=== PATIENT | male | born 1945 | race Asian ===

== ENCOUNTER 2020-05-03 11:15 | Outpatient (REF) | payer OTHER, SELFPAY ==
[2020-05-03 15:22] LABS: Alanine Aminotransferase 18 U/L (0-40); Anion Gap 12 (12-20); Aspartate Amino Transferase 20 U/L (5-37); Blood Urea Nitrogen 20 mg/dL (9-16); Carbon Dioxide 28 mmol/L (22-29); Chloride 104 mmol/L (96-108); Cholesterol 157 mg/dL; Estimated Glomerular Filt Rate > 60; Glucose Fasting 102 mg/dL (60-99); HDL Cholesterol 58 mg/dL; LDL Cholesterol Calculated 81 mg/dl; Potassium 4.3 mmol/l (3.3-5.1); Sodium 140 mmol/L (135-145); Triglycerides 94 mg/dL
== END 2020-05-03 11:16 | disposition home or self-care (01) ==
LOC: HO.HMGCLDS 11:15
PROVIDERS: PCP Internal Medicine; Visit Provider Internal Medicine
DX: E78.2 Mixed hyperlipidemia (principal); I10 Essential (primary) hypertension
CPT/HCPCS: 80048; 80061; 84450; 84460

== ENCOUNTER 2020-06-22 11:27 | Outpatient (REF) | payer OTHER, SELFPAY ==
--- NOTE | 2020-06-22 11:32 | XR_ITS ---
EXAMINATION: XR CHEST CLINICAL INFORMATION: Abnormal weight loss COMPARISON: None TECHNIQUE: 2 views of the chest were obtained. FINDINGS: The cardiac and mediastinal contours are normal. The lungs are clear. There is no pleural effusion or pneumothorax. There are degenerative changes of the spine. XR/XR chest 2V IMPRESSION: Unremarkable examination.
[2020-06-22 14:04] LABS: Baso%MD 0.6 %; Eos%MD 0.2 %; Hematocrit 36.7 % (42-52); Hemoglobin 13.4 g/dl (14.0-18.0); IG%MD 0.2 %; Lymph%MD 25.2 %; Mean Corpuscular HGB Conc 36.5 g/dl (31.0-36.0); Mean Corpuscular Hemoglobin 34.1 pg (27.0-33.0); Mean Corpuscular Volume 93.4 fL (80-98); Mean Platelet Volume 9.8 fL (9.4-12.4); Mono%MD 7.2 %; Neut%MD 66.6 %; Platelet Count 166 X10*3/uL (160-400); Red Blood Count 3.93 X10*6/uL (4.60-5.80); Red Cell Distribution Width 12.3 % (11.0-16.0); White Blood Count 5.3 X10*3/uL (4.8-10.8)
[2020-06-22 14:09] LABS: Glucose Urine UA NEG (NEG); Leukocyte Esterase Urine NEG (NEG); Nitrite Urine NEG (NEG); PH 5.5 (5.0-8.0); Specific Gravity - Urine 1.025 (1.005-1.025); Urine Blood NEG (NEG); Urine Ketones NEG (NEG); Urine Protein 1+ MG/DL (NEG-TRACE)
[2020-06-22 14:11] LABS: Appearance Urine CLEAR; Color Urine YELLOW
[2020-06-22 14:31] LABS: Alanine Aminotransferase 42 U/L (0-40); Albumin Level 4.6 g/dL (3.5-5.0); Alkaline Phosphatase 47 U/L (39-117); Anion Gap 14 (12-20); Aspartate Amino Transferase 45 U/L (5-37); Bacteria Urine TRACE /LPF; Bilirubin Direct 0.5 mg/dL (0.0-0.5); Blood Urea Nitrogen 10 mg/dL (9-16); C Reactive Protein 0.04 mg/dL (< or = 0.50); Carbon Dioxide 25 mmol/L (22-29); Chloride 98 mmol/L (96-108); Cholesterol 151 mg/dL; Estimated Glomerular Filt Rate > 60; Glucose Fasting 111 mg/dL (60-99); HDL Cholesterol 83 mg/dL; LDL Cholesterol Calculated 32 mg/dl; Mucus Urine TRACE /LPF; RBC Urine 0-2 /HPF (0); Sodium 133 mmol/L (135-145); Squamous Epithelial Cell Urine TRACE /LPF; Total Protein 7.9 g/dL (6.5-8.0); Triglycerides 183 mg/dL; Uric Acid 4.3 mg/dL (3.4-7.0); WBC Urine 0-2 /HPF (0-4)
[2020-06-22 14:47] LABS: TSH reflex Free T4 0.66 uIU/mL (0.32-4.0)
[2020-06-22 15:30] LABS: Band Neutrophils Percent 1 % (3-5); Lymphocytes Absolute Manual 1.4 X10*3/uL (0.6-4.8); Lymphocytes Percent Manual 26 % (20-40); Monocytes Absolute Manual 0.5 X10*3/uL (0.0-1.2); Monocytes Percent Manual 10 % (2-11); Neutrophils Absolute Manual 3.4 X10*3/uL (2.2-7.9); Neutrophils Percent Manual 63 % (45-73)
[2020-06-22 15:31] LABS: Platelet Estimate NORMAL (NORMAL); Platelet Morphology Comment NORMAL; RBC Morphology NORMAL
[2020-06-23 08:48] LABS: Lyme Abs Screen <0.90 index
== END 2020-06-22 11:28 | disposition home or self-care (01) ==
LOC: HO.HMGCLDS 11:27
PROVIDERS: PCP Internal Medicine; Visit Provider Physician Assistant
DX: Z00.01 Encounter for general adult medical examination with abnormal findings (principal); E79.0 Hyperuricemia without signs of inflammatory arthritis and tophaceous disease; R63.4 Abnormal weight loss; R63.0 Anorexia; I10 Essential (primary) hypertension; E78.5 Hyperlipidemia, unspecified
CPT/HCPCS: 36415; 71046; 80048; 80061; 80076; 81001; 81003; 84443; 84550; 85007; 85027; 86140; 86618

== ENCOUNTER 2020-09-30 10:12 | Outpatient (REF) | payer OTHER, SELFPAY ==
[2020-09-30 12:14] LABS: Alanine Aminotransferase 89 U/L (0-40); Anion Gap 13 (12-20); Aspartate Amino Transferase 123 U/L (5-37); Blood Urea Nitrogen 13 mg/dL (9-16); Calcium 9.1 mg/dL (8.4-10.2); Carbon Dioxide 26 mmol/L (22-29); Chloride 102 mmol/L (96-108); Cholesterol 163 mg/dL; Estimated Glomerular Filt Rate 58; Glucose Fasting 101 mg/dL (60-99); HDL Cholesterol 69 mg/dL; Potassium 4.1 mmol/L (3.3-5.1); Sodium 137 mmol/L (135-145); Triglycerides 513 mg/dL
== END 2020-09-30 10:13 | disposition home or self-care (01) ==
LOC: HO.HMGCLDS 10:12
PROVIDERS: PCP Internal Medicine; Visit Provider Internal Medicine
DX: E78.5 Hyperlipidemia, unspecified (principal); I10 Essential (primary) hypertension
CPT/HCPCS: 36415; 80048; 80061; 84450; 84460

== ENCOUNTER 2020-10-19 08:21 | Outpatient (REF) | payer OTHER, SELFPAY ==
--- NOTE | ~2020-10-19 | US_ITS ---
EXAMINATION: US ABDOMEN COMPLETE CLINICAL INFORMATION: Anorexia. COMPARISON: None TECHNIQUE: Real-time imaging of the abdominal viscera. FINDINGS: PANCREAS: Normal. ABDOMINAL AORTA: The proximal, mid, and distal segments are normal in caliber. INFERIOR VENA CAVA: Visualized portions are normal. LIVER: The liver is normal in size. The liver contour is normal. There is mild increased liver echogenicity. No focal lesion seen. No focal hepatic lesion. There is no intrahepatic biliary duct dilatation seen. GALLBLADDER: The gallbladder is physiologically distended without evidence of stones, sludge, wall thickening, or pericholecystic fluid. Wall thickness is 0.21 cm. There is a nonmobile echogenic 2 mm polyp along the posterior gallbladder wall. COMMON BILE DUCT: Normal in caliber measuring 0.36 cm in diameter. RIGHT KIDNEY: Normal. No hydronephrosis. No renal calculi or focal parenchymal lesions. The kidney measures 11.4 cm in maximum dimension. LEFT KIDNEY: Normal. No hydronephrosis. No renal calculi or focal parenchymal lesions. The kidney measures 10.4 cm in maximum dimension. SPLEEN: Normal. The spleen measures 8.9 cm in maximum dimension. FREE FLUID: None. US/US abdomen complete IMPRESSION: 2 mm gallbladder polyp. No echogenic gallstones or wall thickening.
== END 2020-10-19 08:22 | disposition home or self-care (01) ==
LOC: HO.HMGCX 08:21
PROVIDERS: PCP Internal Medicine; Visit Provider Internal Medicine
DX: R63.0 Anorexia (principal); R11.0 Nausea; R74.8 Abnormal levels of other serum enzymes
CPT/HCPCS: 76700

== ENCOUNTER 2021-02-11 11:46 | Outpatient (REF) | payer OTHER, SELFPAY ==
[2021-02-11 14:06] LABS: Appearance Urine CLEAR; Color Urine YELLOW; Glucose Urine UA NEG (NEG); Leukocyte Esterase Urine NEG (NEG); Nitrite Urine NEG (NEG); PH 5.5 (5.0-8.0); Specific Gravity - Urine 1.025 (1.005-1.025); Urine Blood NEG (NEG); Urine Ketones NEG (NEG); Urine Protein TRACE MG/DL (NEG-TRACE)
[2021-02-11 14:28] LABS: Alanine Aminotransferase 55 U/L (0-40); Aspartate Amino Transferase 44 U/L (5-37); Cholesterol 164 mg/dL; HDL Cholesterol 53 mg/dL; LDL Cholesterol Calculated 83 mg/dl; Triglycerides 141 mg/dL
== END 2021-02-11 11:47 | disposition home or self-care (01) ==
LOC: HO.HMGCLDS 11:46
PROVIDERS: Physician Assistant; PCP Internal Medicine; Visit Provider Internal Medicine
DX: E78.1 Pure hyperglyceridemia (principal); R74.8 Abnormal levels of other serum enzymes; R63.0 Anorexia; R63.4 Abnormal weight loss
CPT/HCPCS: 36415; 80061; 81003; 84450; 84460

== ENCOUNTER 2021-06-29 08:27 | Outpatient (REF) | payer OTHER, MEDICARE, SELFPAY ==
[2021-06-29 13:15] LABS: Alanine Aminotransferase 49 U/L (0-40); Anion Gap 11 (12-20); Aspartate Amino Transferase 45 U/L (5-37); Carbon Dioxide 27 mmol/L (22-29); Chloride 105 mmol/L (96-108); Cholesterol 174 mg/dL; Estimated Glomerular Filt Rate > 60; Glucose Fasting 104 mg/dL (60-99); HDL Cholesterol 63 mg/dL; LDL Cholesterol Calculated 86 mg/dl; Potassium 4.3 mmol/L (3.3-5.1); Sodium 139 mmol/L (135-145); Triglycerides 125 mg/dL
[2021-06-29 15:36] LABS: Blood Urea Nitrogen 10 mg/dL (9-16); Uric Acid 5.1 mg/dL (3.4-7.0)
== END 2021-06-29 08:28 | disposition home or self-care (01) ==
LOC: HO.HMGCLDS 08:27
PROVIDERS: PCP Internal Medicine; Visit Provider Internal Medicine
DX: Z00.01 Encounter for general adult medical examination with abnormal findings (principal); E79.0 Hyperuricemia without signs of inflammatory arthritis and tophaceous disease; E78.5 Hyperlipidemia, unspecified; I10 Essential (primary) hypertension; E78.1 Pure hyperglyceridemia; R74.8 Abnormal levels of other serum enzymes
CPT/HCPCS: 36415; 80048; 80061; 84450; 84460; 84550

== ENCOUNTER 2021-10-22 10:04 | Outpatient (REF) | payer MEDICARE, OTHER, SELFPAY ==
[2021-10-22 11:17] LABS: Alanine Aminotransferase 40 U/L (0-40); Anion Gap 13 (12-20); Aspartate Amino Transferase 32 U/L (5-37); Blood Urea Nitrogen 16 mg/dL (9-16); Calcium 9.5 mg/dL (8.4-10.2); Carbon Dioxide 26 mmol/L (22-29); Chloride 105 mmol/L (96-108); Cholesterol 162 mg/dL; Estimated Glomerular Filt Rate > 60; Glucose Fasting 115 mg/dL (60-99); HDL Cholesterol 43 mg/dL; LDL Cholesterol Calculated 86 mg/dl; Potassium 4.6 mmol/L (3.3-5.1); Sodium 139 mmol/L (135-145); Triglycerides 169 mg/dL
[2021-10-22 11:22] LABS: Estimated Average Glucose 108 mg/dL; Hemoglobin A1c % 5.4 %
[2021-10-22 11:26] LABS: Uric Acid 5.8 mg/dL (3.4-7.0)
== END 2021-10-22 10:05 | disposition home or self-care (01) ==
LOC: HO.HMGCLDS 10:04
PROVIDERS: PCP Internal Medicine; Visit Provider Internal Medicine
DX: E78.1 Pure hyperglyceridemia (principal); E78.5 Hyperlipidemia, unspecified; E79.0 Hyperuricemia without signs of inflammatory arthritis and tophaceous disease; I10 Essential (primary) hypertension; R73.01 Impaired fasting glucose; R74.8 Abnormal levels of other serum enzymes
CPT/HCPCS: 36415; 80048; 80061; 83036; 84450; 84460; 84550

== ENCOUNTER 2022-02-22 08:28 | Outpatient (REF) | payer MEDICARE, OTHER, SELFPAY ==
[2022-02-22 11:13] LABS: MANUAL DIFF FLAG NO
[2022-02-22 11:18] LABS: Basophils Percent Auto 0.7 % (0-2); Eosinophils Absolute Auto 0.1 X10*3/uL (0.0-0.4); Eosinophils Percent Auto 1.1 % (0-4); Hematocrit 41.3 % (42.0-52.0); Hemoglobin 14.9 g/dl (14.0-18.0); Imm Gran Abs Auto 0.01 X10*3/uL (0.00-0.03); Imm Gran Pct Auto 0.2 % (0.0-0.4); Lymphocytes Absolute Auto 2.8 X10*3/uL (1.2-4.9); Mean Corpuscular HGB Conc 36.1 g/dl (31.0-36.0); Mean Corpuscular Hemoglobin 34.2 pg (27.0-33.0); Mean Corpuscular Volume 94.7 fL (80.0-98.0); Mean Platelet Volume 9.8 fL (9.4-12.4); Monocytes Absolute Auto 0.5 X10*3/uL (0.1-1.2); Monocytes Percent Auto 7.9 % (2-11); Neutrophils Absolute Auto 2.3 x10*3/uL (2.0-8.3); Neutrophils Percent Auto 41.1 % (45-73); Platelet Count 173 X10*3/uL (160-400); Red Blood Count 4.36 X10*6/uL (4.60-5.80); Red Cell Distribution Width 12.1 % (11.0-16.0); White Blood Count 5.7 X10*3/uL (4.8-10.8)
[2022-02-22 11:35] LABS: Alanine Aminotransferase 56 U/L (0-40); Anion Gap 15 (12-20); Aspartate Amino Transferase 49 U/L (5-37); Blood Urea Nitrogen 13 mg/dL (9-16); Calcium 9.7 mg/dL (8.4-10.2); Carbon Dioxide 26 mmol/L (22-29); Chloride 102 mmol/L (96-108); Cholesterol 171 mg/dL; Estimated Glomerular Filt Rate > 60; Glucose Fasting 110 mg/dL (60-99); HDL Cholesterol 59 mg/dL; LDL Cholesterol Calculated 75 mg/dl; Potassium 3.9 mmol/L (3.3-5.1); Sodium 139 mmol/L (135-145); Triglycerides 187 mg/dL
[2022-02-22 11:56] LABS: Vitamin D 25-OH Total 56.7 ng/mL (>30)
[2022-02-22 11:59] LABS: Uric Acid 5.1 mg/dL (3.4-7.0)
== END 2022-02-22 08:29 | disposition home or self-care (01) ==
LOC: HO.HMGCLDS 08:28
PROVIDERS: PCP Internal Medicine; Visit Provider Internal Medicine
DX: E78.1 Pure hyperglyceridemia (principal); E78.2 Mixed hyperlipidemia; E79.0 Hyperuricemia without signs of inflammatory arthritis and tophaceous disease; I10 Essential (primary) hypertension; R73.01 Impaired fasting glucose
CPT/HCPCS: 36415; 80048; 80061; 82306; 84450; 84460; 84550; 85025

== ENCOUNTER 2022-04-03 08:16 | Outpatient (REF) | payer MEDICARE, OTHER, SELFPAY ==
[2022-04-04 13:57] LABS: H Pylori Breath Test Negative (Negative)
== END 2022-04-03 08:17 | disposition home or self-care (01) ==
LOC: CF 08:16
PROVIDERS: PCP Internal Medicine; Visit Provider Physician Assistant
DX: R13.10 Dysphagia, unspecified (principal); K21.9 Gastro-esophageal reflux disease without esophagitis; A04.8 Other specified bacterial intestinal infections; Z79.899 Other long term (current) drug therapy
CPT/HCPCS: 36415; 83013; 99202; 99212

== ENCOUNTER 2022-05-25 09:45 | Outpatient (REF) | payer MEDICARE, OTHER, SELFPAY ==
--- NOTE | ~2022-05-25 | FL_ITS ---
PROCEDURE: FL BARIUM SWALLOW CLINICAL INFORMATION: Dysphagia. COMPARISON: None TECHNIQUE: Barium swallow examination is performed using fluoroscopic evaluation in addition to multiple fluoroscopic spot views. The patient is imaged both upright and prone and using both thick and thin sulfate along with effervescent granules. Fluoroscopy time: 1.1 minutes DAP: 6.717 Gy-cm2 Images: 36 FINDINGS: There is normal apposition of the vocal cords while saying E . There is normal elevation of the soft palate while saying candy . Patient swallowed half-inch diameter tablet without difficulty. No nasopharyngeal reflux or tracheal aspiration was identified. No cricopharyngeal hypertrophy or Zenker's diverticulum. No persistent esophageal stricture is identified. There is normal esophageal motility. No mucosal irregularity is noted. There is a small sliding hiatal hernia seen. No gastroesophageal reflux was elicited with water siphon test or positioning maneuvers. FL/FL barium swallow IMPRESSION: Small sliding hiatal hernia. Otherwise unremarkable esophagram.
== END 2022-05-25 09:46 | disposition home or self-care (01) ==
LOC: HO.XRAY 09:45
PROVIDERS: PCP Internal Medicine; Visit Provider Physician Assistant
DX: R13.10 Dysphagia, unspecified (principal)
CPT/HCPCS: 74220

== ENCOUNTER 2022-07-03 09:09 | Outpatient (REF) | payer MEDICARE, OTHER, SELFPAY ==
[2022-07-03 11:36] LABS: MANUAL DIFF FLAG NO
[2022-07-03 11:45] LABS: Basophils Percent Auto 0.6 % (0-2); Eosinophils Absolute Auto 0.1 X10*3/uL (0.0-0.4); Eosinophils Percent Auto 1.3 % (0-4); Hematocrit 39.9 % (42.0-52.0); Hemoglobin 14.3 g/dl (14.0-18.0); Imm Gran Abs Auto 0.01 X10*3/uL (0.00-0.03); Imm Gran Pct Auto 0.2 % (0.0-0.4); Lymphocytes Absolute Auto 2.8 X10*3/uL (1.2-4.9); Lymphocytes Percent Auto 52.4 % (20-40); Mean Corpuscular HGB Conc 35.8 g/dl (31.0-36.0); Mean Corpuscular Hemoglobin 33.6 pg (27.0-33.0); Mean Corpuscular Volume 93.7 fL (80.0-98.0); Monocytes Absolute Auto 0.4 X10*3/uL (0.1-1.2); Monocytes Percent Auto 7.3 % (2-11); Neutrophils Percent Auto 38.2 % (45-73); Platelet Count 194 X10*3/uL (160-400); Red Blood Count 4.26 X10*6/uL (4.60-5.80); Red Cell Distribution Width 12.4 % (11.0-16.0); White Blood Count 5.3 X10*3/uL (4.8-10.8)
[2022-07-03 12:03] LABS: Estimated Average Glucose 105 mg/dL; Hemoglobin A1c % 5.3 %
[2022-07-03 12:12] LABS: Alanine Aminotransferase 46 U/L (0-40); Anion Gap 14 (12-20); Aspartate Amino Transferase 48 U/L (5-37); Blood Urea Nitrogen 13 mg/dL (9-16); Calcium 9.2 mg/dL (8.4-10.2); Carbon Dioxide 25 mmol/L (22-29); Chloride 102 mmol/L (96-108); Cholesterol 177 mg/dL; Estimated Glomerular Filt Rate > 60; Glucose Fasting 116 mg/dL (60-99); HDL Cholesterol 54 mg/dL; Iron 133 mcg/dL (45-160); LDL Cholesterol Calculated 88 mg/dl; Percent Iron Saturation 47 % (15-50); Potassium 4.1 mmol/L (3.3-5.1); Sodium 137 mmol/L (135-145); Total Iron Binding Capacity 284 mcg/dL (228-428); Triglycerides 179 mg/dL; Unsaturated Iron Binding 151 ug/dL; Uric Acid 5.1 mg/dL (3.4-7.0)
== END 2022-07-03 09:10 | disposition home or self-care (01) ==
LOC: HO.HMGCLDS 09:09
PROVIDERS: PCP Internal Medicine; Visit Provider Internal Medicine
DX: E78.2 Mixed hyperlipidemia (principal); R73.01 Impaired fasting glucose; E79.0 Hyperuricemia without signs of inflammatory arthritis and tophaceous disease; I10 Essential (primary) hypertension
CPT/HCPCS: 36415; 80048; 80061; 83036; 83540; 84450; 84460; 84550; 85025

== ENCOUNTER 2022-07-05 11:29 | Outpatient (AMB) | payer MEDICARE, OTHER, SELFPAY ==
--- NOTE | 2022-07-05 11:40 | MHC.PC.OV ---
Vital Signs 07/05/22 11:44 Height 5 ft 4 in Weight 186 lb BMI 31.9 BP 128/60 Blood Pressure Location Lt brachial Position Sitting Pulse 98 Pulse Source Pulse Oximeter Pulse Oximetry (%) 96 Oxygen Delivery Method Room Air Intake Visit Reasons: 4 month follow up Intake Note: Pt is here today for her 4 months f/u Allergies No Known Allergies [No Known Allergies*] Allergy (Verified 08/30/23 10:35) Medication List - Last Reconciled 08/09/22 by Mayra Monterroso MD allopurinol 300 mg PO DAILY amlodipine 10 mg PO DAILY atorvastatin 10 mg PO DAILY folic acid 1 mg PO DAILY 90 days halobetasol propionate 0.05% 1 appl topical DAILY losartan 75 mg (1.5 x 50 mg) PO DAILY omega-3 acid ethyl esters (Lovaza) 2 caps PO BID 90 days omeprazole 40 mg PO DAILY 30 days Tobacco use date assessed: 07/05/22 Fall risk assessment: No Falls in past year Last assessed Fall Risk: 07/05/22 HPI 4 month follow up HPI Details 76-year-old male, here today for follow-up on his lipids hyperuricemia and hypertension. He has been feeling well, compliant with taking his medications and has no complaints at present time. Blood pressure stable and controlled on present dose of losartan. [facility] Medical History Elevated transaminase level Sliding hiatal hernia Difficulty swallowing solids Mixed dyslipidemia Dysphagia Elevated liver enzymes Laceration of head Tinnitus of left ear History of stress test Hyperuricemia Impaired fasting glucose Seasonal allergic rhinitis Psoriasis MALU (obstructive sleep apnea) HTN (hypertension) Surgical History No pertinent past surgical history Family History Father Cardiovascular accident Mother Stroke Social History Housing: House Alcohol intake: current Patient Tobacco Use Status: Former Tobacco user (28 years ago ) Tobacco use type: Cigarette Years Smoked: 8 years e-Cigarette/Vaping Use: Never Used Current occupational status: retired Cognitive needs: No Hearing needs: No Vision needs: No Questionnaire Thrive Questionnaire Date Thrive assessed: 07/01/21 AUDIT C Alcohol Use Questionnaire (AUDIT-C) 1. How often do you have a drink containing alcohol?: Monthly or less 2. How many drinks containing alcohol do you have on a typical day when you are drinking?: 1 or 2 3. How often do you have six or more drinks on one occasion?: Never Total Score: 1 STEVENSON-7 AMB Questionnaire STEVENSON-7 Date STEVENSON - 7 assessed: 07/01/21 Source: Developed by Drs. Michael Wilkinson, Leatha Faustin, Dusty Chaudhry and colleagues, with an educational debbie from [employer]. Review of Systems Const Denies headache(s) Eyes Denies change in vision ENT Denies dizziness, Denies headache(s), Denies nasal congestion and Denies sore throat Card Denies chest pain and Denies dyspnea Resp Denies dyspnea GI Denies abdominal pain, Denies hematochezia and Denies change in stool character Musc Denies myalgias, Denies arthralgias and Denies joint swelling Neuro Denies dizziness and Denies headache(s) Endo Reports no additional complaints Jimi/Lymph Denies easy bleeding and Denies easy bruising Aller/Immun Reports no additional complaints Physical exam (Primary Care) Vital Signs: Last Vital Signs Pulse 98 07/05/22 11:44 BP 128/60 07/05/22 11:44 Pulse Ox 96 07/05/22 11:44 Oxygen Delivery Method Room Air 07/05/22 11:44 BMI result Body Mass Index 31.9 BMI Assessment/Plan discussion: High BMI High, discussed plan: lifestyle, weight reduction, dietary and physical activity Tobacco/Smoking Status: Tobacco use Status Tobacco use date assessed 07/05/22 07/05/22 11:49 Patient Tobacco Use Status Former Tobacco user (28 07/05/22 11:41 years ago ) Tobacco use type Cigarette 07/05/22 11:41 e-Cigarette/Vaping Use Never Used 07/05/22 11:41 Thrive Assessment: Date of Thrive Assessment Date Thrive assessed 07/01/21 07/05/22 11:41 Const General: no acute distress Orientation/consciousness: patient oriented x3 Limitations: no limitations HENMT Face and sinus: Yes face symmetric Mouth: Normal oral and palatal mucosa present, oropharynx normal and moist mucous membranes Neck Neck: Yes full ROM, Yes no lymphadenopathy and Yes supple Thyroid: Thyroid normal Resp Effort & Inspection: normal respiratory effort and able to speak in complete sentences Auscultation: clear to auscultation bilaterally Cardio Rate: regular rate Rhythm: regular rhythm Heart sounds: S1 normal heart sound present and S2 normal heart sound present GI Palpation (GI): Soft to palpation, nontender, no guarding and no masses Auscultation: normal bowel sounds Neuro General: patient oriented x3, gait normal, tone normal, moves all extremities and no focal motor deficits Extrem General: Yes full ROM, Yes no joint enlargement, Yes no pedal edema and Yes normal gait Results Reviewed Results Reviewed: Name: Osorio Boykin Age/Sex: 76/M : 1945 Unit#: [id number] Attend Dr: Mayra Monterroso MD Re07/03/22 Status: DEP REF Location: [facility] Disch: SPEC : [id number] KAROL: 07/03/22 STATUS: COMP REQ : [id number] RECD: 07/03/[address]: Mayra Monterroso MD COMP: 07/03/22 ENTERED: 07/03/[address]: ORDERED: CBC Auto Diff Test Result Flag Reference Site WBC 5.3 4.8-10.8 X10*3/uL RBC 4.26 L 4.60-5.80 X10*6/uL HGB 14.3 14.0-18.0 g/dl HCT 39.9 L 42.0-52.0 % MCV 93.7 80.0-98.0 fL MCH 33.6 H 27.0-33.0 pg MCHC 35.8 31.0-36.0 g/dl RDW 12.4 11.0-16.0 % PLT 194 160-400 X10*3/uL MPV 10.0 9.4-12.4 fL Neut Pct Auto 38.2 L 45-73 % ImGran Pct Auto 0.2 0.0-0.4 % Lymp Pct Auto 52.4 H 20-40 % [place] Pct Auto 7.3 2-11 % Eos Pct Auto 1.3 0-4 % Baso Pct Auto 0.6 0-2 % NRBC Pct Auto 0.0 0.0-0.2 /100WBC ANC Neut Abs # 2.0 2.0-8.3 x10*3/uL ImGran Abs Auto 0.01 0.00-0.03 X10*3/uL Lymph Abs Auto 2.8 1.2-4.9 X10*3/uL [place] Abs Auto 0.4 0.1-1.2 X10*3/uL Eos Abs Auto 0.1 0.0-0.4 X10*3/uL Baso Abs Auto 0.0 0.0-0.2 X10*3/uL NRBC Abs Auto 0.000 0.0-0.012 X10*3/uL ENTERED: 07/03/22 FLAKITA GARCIA: ORDERED: Met Prof Fast, Uric, IRON PROF, AST, ALT, Lipid Panel Test Result Flag Reference Site Sodium 137 135-145 mmol/L Potassium 4.1 3.3-5.1 mmol/L CL 102 96-108 mmol/L CO2 25 22-29 mmol/L Gap 14 12-20 BUN 13 9-16 mg/dL Creat 1.04 0.5-1.4 mg/dL EGFR > 60 NOTE: For -[place] Citizen individuals, multiply the result by 1.210. Chronic Kidney Disease: Estimated GFR < 60 mL/min/1.73m2 Severe Kidney Disease: Estimated GFR < 15 mL/min/1.73m2 FBS 116 H 60-99 mg/dL A fasting glucose from 100-125 mg/dl is considered impaired (pre-diabetes). Uric Acid 5.1 3.4-7.0 mg/dL CA 9.2 8.4-10.2 mg/dL Iron 133 45-160 mcg/dL TIBC 284 228-428 mcg/dL Saturation 47 15-50 % UIBC 151 ug/dL AST (GOT) 48 H 5-37 U/L ALT (GPT) 46 H 0-40 U/L Triglyceride 179 mg/dL Desirable Triglyceride: less than 150 mg/dL Borderline High Triglyceride 150-199 mg/dL High Triglyceride: 200-499 mg/dL Very High Triglyceride: greater than or equal to 5OO mg/dL Chol 177 mg/dL Desirable Cholesterol: less than 200 mg/dL Borderline High Cholesterol: 200-239 mg/dL High Cholesterol: greater than 239 mg/dL LDL Calculated 88 mg/dl Desirable LDL: less than 100 mg/dL Near Optimal/Above Optimal LDL: 110-129 mg/dL Borderline High LDL: 130-159 mg/dL High LDL: 160-189 mg/dL Very High LDL: greater than or equal to 190 mg/dL HDL 54 mg/dL Assessment and Plan Assessment & Plan (1) Mixed dyslipidemia: Code(s): E78.2 - Mixed hyperlipidemia Plan: Reviewed recent fasting lipid profile with patient with mildly elevated triglycerides but LDL cholesterol are within normal limits . Continue with taking Beacon 3 fatty acid supplements and atorvastatin 10 mg daily , in addition to adherence to low-cholesterol diet and regular exercise, at least 30 minutes 3 to 4 times a week. Advised patient to make healthy food choices, eat more fruits, vegetables, whole grains, wild caught fish and low-fat dairy. Limit amount of meat and fried or fatty food products, as well as processed foods and fast foods. Follow-up scheduled with repeat fasting lipid panel in 6 months. (2) Impaired fasting glucose: Code(s): R73.01 - Impaired fasting glucose Plan: Your fasting blood sugars elevated above 100 mg/dL. Impaired glucose metabolism O2 at risk for developing diabetes mellitus type 2, as well as heart attack and stroke later on. Lifestyle changes at just weight loss, healthy eating habits, and regular exercise are important, and can prevent the progression to diabetes (3) Hyperuricemia: Code(s): E79.0 - Hyperuricemia without signs of inflammatory arthritis and tophaceous disease Plan: Recent uric acid levels within normal limits, continue with allopurinol and had hearing to a low purine diet. (4) HTN (hypertension): Code(s): I10 - Essential (primary) hypertension Qualifiers: Hypertension type: essential hypertension Qualified Code(s): I10 - Essential (primary) hypertension Plan: Blood pressure at goal of less than 130/80. Continue with current medication. Reinforced importance of following a low sodium diet, getting regular exercise, and lowering stress levels. Medications: Changed From omega-3 acid ethyl esters 2 caps PO BID 90 days 360 caps 3RF E78.1 - Pure hyperglyceridemia To omega-3 acid ethyl esters (Lovaza) 2 caps PO BID 360 caps 3RF 90 days E78.1 - Pure hyperglyceridemia Refilled amlodipine 10 mg PO DAILY 90 tabs 3RF atorvastatin 10 mg PO DAILY 90 tabs 3RF losartan 75 mg (1.5 x 50 mg) PO DAILY 135 tabs 3RF halobetasol propionate 0.05% 1 appl topical DAILY 15 grams 0RF allopurinol 300 mg PO DAILY 90 tabs 3RF omeprazole 40 mg PO DAILY 30 caps 1RF 30 days Coding Level of Care Code Est Pt Level 4 (51383) Diagnoses Mixed dyslipidemia E78.2 Impaired fasting glucose R73.01 Hyperuricemia E79.0 Essential hypertension I10 Hypertension type: essential hypertension
[2022-07-05 11:44] VITALS: BP 128/60; PULSE 98; O2SAT 96; BMI 31.9
== END 2022-07-05 12:41 | disposition home or self-care (01) ==
LOC: HO.HMGC 11:29
PROVIDERS: PCP Internal Medicine; Visit Provider Internal Medicine
DX: E78.2 Mixed hyperlipidemia (principal); R73.01 Impaired fasting glucose; E79.0 Hyperuricemia without signs of inflammatory arthritis and tophaceous disease; I10 Essential (primary) hypertension
CPT/HCPCS: 99499

== ENCOUNTER 2022-12-23 08:00 | Outpatient (REF) | payer MEDICARE, OTHER, SELFPAY ==
[2022-12-23 11:35] LABS: Estimated Average Glucose 103 mg/dL; Hemoglobin A1c % 5.2 %
[2022-12-23 11:37] LABS: Creatinine Urine 188.11 mg/dL
[2022-12-23 11:49] LABS: Alanine Aminotransferase 45 U/L (0-40); Anion Gap 16 (12-20); Aspartate Amino Transferase 44 U/L (5-37); Blood Urea Nitrogen 11 mg/dL (9-16); Calcium 9.3 mg/dL (8.4-10.2); Carbon Dioxide 23 mmol/L (22-29); Chloride 103 mmol/L (96-108); Cholesterol 163 mg/dL; Estimated Glomerular Filt Rate > 60; Glucose Fasting 102 mg/dL (60-99); HDL Cholesterol 58 mg/dL; LDL Cholesterol Calculated 68 mg/dl; Sodium 138 mmol/L (135-145); Triglycerides 186 mg/dL
[2022-12-23 11:57] LABS: Microalbum/Creatinine Ratio Ur 426.3 ug/mg cr
== END 2022-12-23 08:01 | disposition home or self-care (01) ==
LOC: HO.HMGCLDS 08:00
PROVIDERS: PCP Internal Medicine; Visit Provider Internal Medicine
DX: E78.2 Mixed hyperlipidemia (principal); E79.0 Hyperuricemia without signs of inflammatory arthritis and tophaceous disease; I10 Essential (primary) hypertension; R73.01 Impaired fasting glucose
CPT/HCPCS: 36415; 80048; 80061; 82043; 83036; 84450; 84460

== ENCOUNTER 2022-12-27 10:59 | Outpatient (AMB) | payer MEDICARE, OTHER, SELFPAY ==
[2022-12-27 11:06] VITALS: BP 120/52; PULSE 89; O2SAT 97; BMI 30.6
--- NOTE | 2022-12-27 11:06 | A.OFFPC_ITS ---
Vital Signs 12/27/22 11:06 Height 5 ft 4 in Weight 178 lb BMI 30.6 BP 120/52 L Blood Pressure Location Lt brachial Position Sitting Pulse 89 Pulse Source Pulse Oximeter Pulse Oximetry (%) 97 Oxygen Delivery Method Room Air Intake Visit Reasons: Annual PE/Lipids, HTN Intake Note: Pt is here today for his PE, lipids and HTN Allergies No Known Allergies [No Known Allergies*] Allergy (Verified 12/27/22 11:21) Medication List - Last Reconciled 12/27/22 by Mayra Monterroso MD allopurinol 300 mg PO DAILY amlodipine 10 mg PO DAILY atorvastatin 10 mg PO DAILY folic acid 1 mg PO DAILY 90 days halobetasol propionate 0.05% 1 appl topical DAILY losartan 75 mg (1.5 x 50 mg) PO DAILY omega-3 acid ethyl esters (Lovaza) 2 caps PO BID 90 days omeprazole 40 mg PO DAILY 30 days Tobacco use date assessed: 12/27/22 Fall risk assessment: No Falls in past year Last assessed Fall Risk: 12/27/22 Dental Screening Dental Screen Date: 12/27/22 Did you have a dental visit in the last 12 months?: No Was dental information given to patient?: Yes HPI Annual PE/Lipids, HTN 2 HPI Details 77-year-old male with dyslipidemia, hypertension, history of sliding hiatal hernia with reflux symptoms in the past, hyperuricemia and bicytopenia, followed by hematology, here today for his physical exam. He has been feeling well, compliant with taking his medications and has been trying to follow recommended diet. He is up-to-date with his vaccinations but has not yet had his shingles vaccine more Prevnar 20. He is also up-to-date with his screening colonoscopy. [facility] Medical History (Updated 12/27/22 @ 11:39 by Mayra Monterroso MD) Difficulty swallowing solids Dysphagia Elevated liver enzymes History of stress test HTN (hypertension) Hyperuricemia Impaired fasting glucose Laceration of head Mixed dyslipidemia MALU (obstructive sleep apnea) Psoriasis Seasonal allergic rhinitis Sliding hiatal hernia Tinnitus of left ear Surgical History No pertinent past surgical history Family History Father Cardiovascular accident Mother Stroke Social History Housing: House Alcohol intake: current Patient Tobacco Use Status: Former Tobacco user (28 years ago ) Tobacco use type: Cigarette Years Smoked: 8 years e-Cigarette/Vaping Use: Never Used Current occupational status: retired Cognitive needs: No Hearing needs: No Vision needs: No Questionnaire PHQ-9 Over the last 2 weeks, how often have you been bothered by any of the following problems? 1. Little interest or pleasure in doing things: not at all 2. Feeling down, depressed, or hopeless: not at all 3. Trouble falling or staying asleep, or sleeping too much: not at all 4. Feeling tired or having little energy: not at all 5. Poor appetite or overeating: not at all 6. Feeling bad about yourself - or that you are a failure or have let yourself or your family down: not at all 7. Trouble concentrating on things, such as reading the newspaper or watching television: not at all 8. Moving or speaking so slowly that other people could have noticed. Or the opposite - being so fidgety or restless that you have been moving around a lot more than usual: not at all 9. Thoughts that you would be better off or of hurting yourself in some way: not at all Total score: 0 Depression Screening Interpretation: Negative 43729 - PHQ-9 Billing: Yes Source: Developed by Drs. Michael Wilkinson, Leatha Faustin, Dusty Chaudhry and colleagues, with an educational debbie from [employer]. Thrive Questionnaire Date Thrive assessed: 12/27/22 I am a: Patient What is your living situation today?: I have a steady place to live Within the past 12 months, did the food you bought not last and you didn't have the money to get more?: Never true Within the past 12 months, did you worry whether your food would run out before you got money to buy more?: Never true Do you have trouble paying for medicines?: No Do you have trouble getting transportation to medical appointments?: No Do you have trouble paying your heating and electricity bill?: No Do you have trouble taking care of your child, family member or friend?: No Do you have trouble with day-to-day activities such as bathing, preparing meals, shopping, managing finances, etc.?: No Are you currently unemployed and looking for a job?: No Are you interested in more education?: No AUDIT C Alcohol Use Questionnaire (AUDIT-C) 1. How often do you have a drink containing alcohol?: Never Total Score: 0 STEVENSON-7 AMB Questionnaire STEVENSON-7 Date STEVENSON - 7 assessed: 12/27/22 Feeling nervous, anxious, or on edge: 0 = Not at all Not being able to stop or control worryin = Not at all Worrying too much about different things: 0 = Not at all Trouble relaxin = Not at all Being so restless that it is hard to sit still: 0 = Not at all Becoming easily annoyed or irritable: 0 = Not at all Feeling afraid as if something awful might happen: 0 = Not at all Total STEVENSON-7 score (0-4 normal; 5-9 mild; 10-14 moderate; 15-21 severe): 0 Source: Developed by Drs. Michael Wilkinson, Leatha Faustin, Dusty Chaudhry and colleagues, with an educational debbie from [employer]. STEVENSON-7 Assessment Billing STEVENSON-7 Assessment Tool: STEVENSON-7 Assessment 40486 Review of Systems Eyes Denies change in vision ENT Reports no additional complaints Card Denies chest pain at rest, Denies chest pain with activity, Denies rapid heart rate, Denies irregular heart rhythm, Denies lightheadedness and Denies dyspnea Resp Denies cough and Denies dyspnea GI Denies abdominal pain, Denies melena, Denies bloating, Denies hematochezia, Denies change in bowel habits, Denies change in stool character and Denies heartburn Reports no additional complaints Musc Reports no additional complaints Skin/Breast Reports rash (Recurrent in flexural areas) Neuro Reports no additional complaints Psych Reports no additional complaints Endo Reports no additional complaints Jimi/Lymph Reports no additional complaints Aller/Immun Reports no additional complaints Physical exam (Primary Care) Vital Signs: Last Vital Signs Pulse 89 12/27/22 11:06 BP 120/52 L 12/27/22 11:06 Pulse Ox 97 12/27/22 11:06 Oxygen Delivery Method Room Air 12/27/22 11:06 BMI result Body Mass Index 30.6 BMI Assessment/Plan discussion: High BMI High, discussed plan: lifestyle, weight reduction, dietary and physical activity Tobacco/Smoking Status: Tobacco use Status Tobacco use date assessed 12/27/22 12/27/22 11:11 Patient Tobacco Use Status Former Tobacco user (28 12/27/22 11:06 years ago ) Tobacco use type Cigarette 12/27/22 11:06 e-Cigarette/Vaping Use Never Used 12/27/22 11:06 PHQ-9: PHQ-9 Score PHQ-9: Total score 0 12/27/22 11:20 Depression Screening Interpretation: Negative Thrive Assessment: Date of Thrive Assessment Date Thrive assessed 12/27/22 12/27/22 11:13 Const General: comfortable, no acute distress, alert, awake and Physically active Nutritional Appearance: obese Orientation/consciousness: patient oriented x3 Limitations: no limitations HENMT Head: Yes normocephalic Ears: hearing grossly normal bilaterally, external ears normal and TM's normal bilaterally General nose exam: Normal external nose present Face and sinus: Yes face symmetric Mouth: Normal oral and palatal mucosa present, tongue normal, oropharynx normal and moist mucous membranes Eyes General: appearance normal, both eyes and all related structures Pupils: Equal, round and reactive pupils present EOM: EOMs intact bilaterally Neck Neck: Yes full ROM, Yes no lymphadenopathy and Yes supple Thyroid: Thyroid normal Chest Chest palpation & inspection: normal inspection of the chest and normal palpation of entire chest wall Resp Effort & Inspection: normal respiratory effort and able to speak in complete s entences Auscultation: clear to auscultation bilaterally Cardio Rate: regular rate Rhythm: regular rhythm Heart sounds: S1 normal heart sound present and S2 normal heart sound present GI Inspection: Yes normal to inspection Palpation (GI): Soft to palpation, nontender, no guarding and no masses Auscultation: normal bowel sounds General: Yes no CVA tenderness Male General Exam: Yes normal external exam Back/Spine/Pelvis Back: no CVA tenderness and No back tenderness Cervical Spine: cervical ROM normal Thoracic/Lumbar Spine: thoracic and lumbar spine normal to inspection Skin General skin exam: no rashes or lesions noted Neuro General: patient oriented x3, gait normal, tone normal, moves all extremities, Normal light touch and pain sensation, no focal motor deficits and CN's II-XI intact bilaterally Cranial nerves: Yes Equal, round and reactive pupils present Gait exam (Neuro): Normal gait present Motor exam (neuro): 5/5 motor strength present throughout Extrem General: Yes full ROM, Yes no joint enlargement, Yes no clubbing, cyanosis or edema and Yes normal gait Psych Appearance: grossly normal Mental Status: mental status grossly normal Speech and movement: Normal speech and movement present Affect: normal affect Attitude: cooperative Thought process: Normal thought process present Thought content: Normal thought content present Results Reviewed Results Reviewed: NTERED: 12/23/22 FLAKITA GARCIA: ORDERED: Met Prof Fast, AST, ALT, Lipid Panel Test Result Flag Reference Site Sodium 138 135-145 mmol/L Potassium 4.0 3.3-5.1 mmol/L CL 103 96-108 mmol/L CO2 23 22-29 mmol/L Gap 16 12-20 BUN 11 9-16 mg/dL Creat 1.18 0.5-1.4 mg/dL EGFR > 60 NOTE: For -[place]i individuals, multiply the result by 1.210. Chronic Kidney Disease: Estimated GFR < 60 mL/min/1. 73m2 Severe Kidney Disease: Estimated GFR < 15 mL/min/1.73m2 FBS 102 H 60-99 mg/dL A fasting glucose from 100-125 mg/dl is considered impaired (pre-diabetes). CA 9.3 8.4-10.2 mg/dL AST (GOT) 44 H 5-37 U/L ALT (GPT) 45 H 0-40 U/L Triglyceride 186 mg/dL Desirable Triglyceride: less than 150 mg/dL Borderline High Triglyceride 150-199 mg/dL High Triglyceride: 200-499 mg/dL Very High Triglyceride: greater than or equal to 5OO mg/dL Chol 163 mg/dL Desirable Cholesterol: less than 200 mg/dL Borderline High Cholesterol: 200-239 mg/dL High Cholesterol: greater than 239 mg/dL LDL Calculated 68 mg/dl Desirable LDL: less than 100 mg/dL Near Optimal/Above Optimal LDL: 110-129 mg/dL Borderline High LDL: 130-159 mg/dL High LDL: 160-189 mg/dL Very High LDL: greater than or equal to 190 mg/dL HDL 58 mg/dL Desirable HDL: greater than 40 mg/dL Note: This HDL assay may give artificially low results in patients with liver disease. Laboratory Tests 07/03/22 12/23/22 12/23/22 09:15 08:05 08:10 WBC 5.3 Hgb 14.3 Hct 39.9 L RDW 12.4 Plt Count 194 Estimat Average Glucose 103 Hemoglobin A1c % 5.2 Urine Creatinine 188.11 Urine Microalbumin 802.0 Microalb/Creat Ratio 426.3 Assessment and Plan Assessment & Plan (1) Annual visit for general adult medical examination with abnormal findings: Code(s): Z00.01 - Encounter for general adult medical examination with abnormal findings Plan: Discuss recent lab results with patient.. Recommended dental visit every 6 months and regular eye exams, at least every 2 years. Take adequate calcium in diet and vitamin-D 3 at 2000 IU per cap once a day, in addition to weight-bearing exercises to help maintain good muscle tone and weight control. Instructed to do self-saccular exam to check for mass. Up-to-date with his COVID vaccine, Tdap, gets yearly flu shots, reminded to get his Shingrix vaccine and Prevnar 20 both of which he can get at the pharmacy. He is up-to-date with his screening colonoscopy. Check with his insurance if bone density is covered (2) Mixed dyslipidemia: Code(s): E78.2 - Mixed hyperlipidemia Plan: Reviewed recent fasting lipid profile with patient with levels . Continue with pravastatin , in addition to adherence to low-cholesterol diet and regular exercise, at least 30 minutes 3 to 4 times a week. Advised patient to make hea lthy food choices, eat more fruits, vegetables, whole grains, wild caught fish and low-fat dairy. Limit amount of meat and fried or fatty food products, as well as processed foods and fast foods. Follow-up scheduled with repeat fasting lipid panel in 4 months. (3) HTN (hypertension): Code(s): I10 - Essential (primary) hypertension Qualifiers: Hypertension type: essential hypertension Qualified Code(s): I10 - Essential (primary) hypertension Plan: Blood pressure at goal of less than 130/80. Continue with current medication. Reinforced importance of following a low sodium diet, getting regular exercise, and lowering stress levels. (4) Hyperuricemia: Code(s): E79.0 - Hyperuricemia without signs of inflammatory arthritis and tophaceous disease Plan: Continue with allopurinol, stressed importance of following a low purine diet and staying well hydrated, recheck uric acid level in 4 months (5) Impaired fasting glucose: Code(s): R73.01 - Impaired fasting glucose Plan: Your fasting blood sugars elevated above 100 mg/dL. Impaired glucose metabolism O2 at risk for developing diabetes mellitus type 2, as well as heart attack and stroke later on. Lifestyle changes at just weight loss, healthy eating habits, and regular exercise are important, and can prevent the progression to diabetes (6) Psoriasis: Code(s): L40.9 - Psoriasis, unspecified Plan: Refill sent for halobetasol propionate 0.05% apply sparingly to affected area o nce a day for no more than 10 days at a time Orders: Orders Basic Metabolic Panel Fasting 04/20/23 E78.2 - Mixed hyperlipidemia, E79.0 - Hyperuricemia without signs of inflammatory arthritis and tophaceous disease, I10 - Essential (primary) hypertension, R73.01 - Impaired fasting glucose Alanine Aminotransferase 04/20/23 E78.2 - Mixed hyperlipidemia, E79.0 - Hyperuricemia without signs of inflammatory arthritis and tophaceous disease, I10 - Essential (primary) hypertension, R73.01 - Impaired fasting glucose Aspartate Amino Transferase 04/20/23 E78.2 - Mixed hyperlipidemia, E79.0 - Hyperuricemia without signs of inflammatory arthritis and tophaceous disease, I10 - Essential (primary) hypertension, R73.01 - Impaired fasting glucose Lipid Panel 04/20/23 E78.2 - Mixed hyperlipidemia, E79.0 - Hyperuricemia without signs of inflammatory arthritis and tophaceous disease, I10 - Essential (primary) hypertension, R73.01 - Impaired fasting glucose Uric Acid 04/20/23 E78.2 - Mixed hyperlipidemia, E79.0 - Hyperuricemia without signs of inflammatory arthritis and tophaceous disease, I10 - Essential (primary) hypertension, R73.01 - Impaired fasting glucose Medications: Refilled halobetasol propionate 0.05% 1 appl topical DAILY 15 grams 0RF Coding Level of Care Code Est Pt Prev Care >65y(90466) Diagnoses Annual visit for general adult medical examination with abnormal findings Z00.01 Mixed dyslipidemia E78.2 HTN (hypertension) I10 Hypertension type: essential hypertension Hyperuricemia E79.0 Impaired fasting glucose R73.01 Psoriasis L40.9 Additional Codes STEVENSON-7 Assessment Billing - STEVENSON-7 Assessment Tool: STEVENSON-7 Assessment [id number] ([id number])
== END 2022-12-27 12:47 | disposition home or self-care (01) ==
PROVIDERS: PCP Internal Medicine; Visit Provider Internal Medicine
DX: I10 Essential (primary) hypertension (principal); E78.2 Mixed hyperlipidemia; E79.0 Hyperuricemia without signs of inflammatory arthritis and tophaceous disease; R73.01 Impaired fasting glucose; L40.9 Psoriasis, unspecified
CPT/HCPCS: 99213

== ENCOUNTER 2023-02-28 10:22 | Outpatient (AMB) | payer OTHER, MEDICARE, SELFPAY ==
[2023-02-28 11:08] VITALS: BP 120/60; PULSE 91; O2SAT 98; BMI 30.6
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
== END 2023-02-28 12:07 | disposition home or self-care (01) ==
PROVIDERS: PCP Internal Medicine; Visit Provider Internal Medicine
DX: Z87.828 Personal history of other (healed) physical injury and trauma (principal); S13.4XXA Sprain of ligaments of cervical spine, initial encounter
CPT/HCPCS: 99213

== ENCOUNTER 2023-04-23 10:07 | Outpatient (REF) | payer MEDICARE, OTHER, SELFPAY ==
[2023-04-23 14:21] LABS: Alanine Aminotransferase 41 U/L (0-40); Anion Gap 14 (12-20); Aspartate Amino Transferase 56 U/L (5-37); Blood Urea Nitrogen 8 mg/dL (9-16); Carbon Dioxide 26 mmol/L (22-29); Chloride 100 mmol/L (96-108); Cholesterol 153 mg/dL (<200); Estimated Glomerular Filt Rate > 60; Glucose Fasting 118 mg/dL (60-99); HDL Cholesterol 54 mg/dL (>40); LDL Cholesterol Calculated 74 mg/dL (<100); Potassium 4.1 mmol/L (3.3-5.1); Sodium 136 mmol/L (135-145); Triglycerides 128 mg/dL (<150); Uric Acid 3.9 mg/dL (3.4-7.0)
== END 2023-04-23 10:08 | disposition home or self-care (01) ==
LOC: HO.HMGCLDS 10:07
PROVIDERS: PCP Internal Medicine; Visit Provider Internal Medicine
DX: R73.01 Impaired fasting glucose (principal); E79.0 Hyperuricemia without signs of inflammatory arthritis and tophaceous disease; E78.2 Mixed hyperlipidemia; I10 Essential (primary) hypertension
CPT/HCPCS: 36415; 80048; 80061; 84450; 84460; 84550

== ENCOUNTER 2023-04-27 10:03 | Outpatient (AMB) | payer MEDICARE, OTHER, SELFPAY ==
[2023-04-27 10:32] VITALS: BP 134/60; PULSE 81; O2SAT 98; BMI 30.3
--- NOTE | 2023-04-27 10:32 | A.OFFPC_ITS ---
Vital Signs 04/27/23 10:32 Height 5 ft 4 in Weight 176 lb 8 oz BMI 30.3 BP 134/60 Blood Pressure Location Lt brachial Position Sitting Pulse 81 Pulse Source Pulse Oximeter Pulse Oximetry (%) 98 Oxygen Delivery Method Room Air Intake Visit Reasons: follow up Intake Note: Pt is here to follow up for his lab results Allergies No Known Allergies [No Known Allergies*] Allergy (Verified 04/27/23 11:26) Medication List - Last Reconciled 04/27/23 by Mayra Monterroso MD allopurinol 300 mg PO DAILY amlodipine 10 mg PO DAILY atorvastatin 10 mg PO DAILY losartan 75 mg (1.5 x 50 mg) PO DAILY omega-3 acid ethyl esters (Lovaza) 2 caps PO BID 90 days omeprazole 40 mg PO DAILY 30 days Tobacco use date assessed: 04/27/23 Fall risk assessment: No Falls in past year Last assessed Fall Risk: 04/27/23 Dental Screening Dental Screen Date: 04/27/23 Did you have a dental visit in the last 12 months?: Yes Did you have a dental problem in the last 6 months where you did not have access to dental care?: No Was dental information given to patient?: Patient has dentist HPI follow up HPI Details 77-year-old male here today for follow-u p on his lipids and hypertension. He is currently taking atorvastatin 10 mg daily plus Lovaza 2 capsules twice a day in addition to losartan and amlodipine for his blood pressure. Latest fasting labs showed lipids are within normal limits, and blood pressure is well controlled. His fasting glucose however has been running a little higher than last check and liver enzymes are also still mildly elevated . He has been cutting back on his cholesterol intake, but still drinks 2 glasses of red wine daily with dinner. [facility] Medical History (Updated 04/27/23 @ 11:32 by Mayra Monterroso MD) Elevated transaminase level Sliding hiatal hernia Difficulty swallowing solids Mixed dyslipidemia Dysphagia Elevated liver enzymes Laceration of head Tinnitus of left ear History of stress test Hyperuricemia Impaired fasting glucose Seasonal allergic rhinitis Psoriasis MALU (obstructive sleep apnea) HTN (hypertension) Surgical History No pertinent past surgical history Family History Father Cardiovascular accident Mother Stroke Social History Housing: House Alcohol intake: current Patient Tobacco Use Status: Former Tobacco user (28 years ago ) Tobacco use type: Cigarette Years Smoked: 8 years e-Cigarette/Vaping Use: Never Used Current occupational status: retired Cognitive needs: No Hearing needs: No Vision needs: No Questionnaire Thrive Questionnaire Date Thrive assessed: 12/27/22 STEVENSON-7 AMB Questionnaire STEVENSON-7 Date STEVENSON - 7 assessed: 12/27/22 Source: Developed by Drs. Michael Wilkinson, Leatha Faustin, Dusty Chaudhry and colleagues, with an educational debbie from [employer]. Review of Systems Const Reports no additional complaints ENT Reports no additional complaints Card Denies chest pain at rest, Denies chest pain with activity, Denies rapid heart rate, Denies irregular heart rhythm, Denies lightheadedness and Denies dyspnea Resp Denies cough and Denies dyspnea GI Denies abdominal pain, Denies hematochezia, Denies change in bowel habits and Denies heartburn Reports no additional complaints Musc Reports as per HPI Skin/Breast Reports rash (Recurrent in flexural areas) Neuro Reports no additional complaints Endo Reports no additional complaints Aller/Immun Reports no additional complaints Physical exam (Primary Care) Vital Signs: Last Vital Signs Pulse 81 04/27/23 10:32 BP 134/60 04/27/23 10:32 Pulse Ox 98 04/27/23 10:32 Oxygen Delivery Method Room Air 04/27/23 10:32 BMI result Body Mass Index 30.3 Tobacco/Smoking Status: Tobacco use Status Tobacco use date assessed 04/27/23 04/27/23 10:37 Patient Tobacco Use Status Former Tobacco user (28 04/27/23 10:32 years ago ) Tobacco use type Cigarette 04/27/23 10:32 e-Cigarette/Vaping Use Never Used 04/27/23 10:32 Thrive Assessment: Date of Thrive Assessment Date Thrive assessed 12/27/22 04/27/23 10:32 Const General: comfortable, no acute distress, alert and awake Nutritional Appearance: obese Orientation/consciousness: patient oriented x3 HENMT Face and sinus: Yes face symmetric Mouth: Normal oral and palatal mucosa present, oropharynx normal and moist mucous membranes Eyes General: appearance normal, both eyes and all related structures Neck Neck: Yes full ROM, Yes no lymphadenopathy and Yes supple Thyroid: Thyroid normal Resp Effort & Inspection: normal respiratory effort and able to speak in complete sentences Auscultation: clear to auscultation bilaterally Cardio Rate: regular rate Rhythm: regular rhythm Heart sounds: S1 normal heart sound present and S2 normal heart sound present GI Inspection: Yes normal to inspection Palpation (GI): Soft to palpation, nontender, no guarding and no masses Auscultation: normal bowel sounds Neuro General: patient oriented x3, gait normal, tone normal, moves all extremities, N ormal light touch and pain sensation and no focal motor deficits Gait exam (Neuro): Normal gait present Extrem General: Yes full ROM, Yes no joint enlargement, Yes no clubbing, cyanosis or edema and Yes normal gait Results Reviewed Results Reviewed: Name: Osorio Boykin Age/Sex: 77/M : 1945 Unit#: [id number] Attend Dr: Mayra Monterroso MD Re04/23/23 Status: DEP REF Location: [facility] Disch: SPEC : [id number] KAROL: 04/23/23 STATUS: COMP REQ : [id number] RECD: 04/23/[address]: Mayra Monterroso MD COMP: 04/23/23 ENTERED: 04/23/23 [facility] DR: ORDERED: Met Prof Fast, Uric, AST, ALT, Lipid Panel Test Result Flag Reference Site Sodium 136 135-145 mmol/L Potassium 4.1 3.3-5.1 mmol/L CL 100 96-108 mmol/L CO2 26 22-29 mmol/L Gap 14 12-20 BUN 8 L 9-16 mg/dL Creat 1.06 0.5-1.4 mg/dL EGFR > 60 NOTE: For -[place] individuals, multiply the result by 1.210. Chronic Kidney Disease: Estimated GFR < 60 mL/min/1.73m2 Severe Kidney Disease: Estimated GFR < 15 mL/min/1.73m2 FBS 118 H 60-99 mg/dL A fasting glucose from 100-125 mg/dl is considered impaired (pre-diabetes). Uric Acid 3.9 3.4-7.0 mg/dL CA 9.0 8.4-10.2 mg/dL AST (GOT) 56 H 5-37 U/L ALT (GPT) 41 H 0-40 U/L Triglyceride 128 <150 mg/dL Desirable Triglyceride: less than 150 mg/dL Borderline High Triglyceride 150-199 mg/dL High Triglyceride: 200-499 mg/dL Very High Triglyceride: greater than or equal to 5OO mg/dL Cholesterol 153 <200 mg/dL Desirable Cholesterol: less than 200 mg/dL Borderline High Cholesterol: 200-239 mg/dL High Cholesterol: greater than 239 mg/dL LDL Calculated 74 <100 mg/dL Desirable LDL: less than 100 mg/dL Near Optimal/Above Optimal LDL: 110-129 mg/dL Borderline High LDL: 130-159 mg/dL High LDL: 160-189 mg/dL Very High LDL: greater than or equal to 190 mg/dL HDL 54 >40 mg/dL Desirable HDL: greater than 40 mg/dL Note: This HDL assay may give artificially low results in patients with liver disease. Assessment and Plan Assessment & Plan (1) Mixed dyslipidemia: Code(s): E78.2 - Mixed hyperlipidemia Plan: Continue atorvastatin 10 mg daily in addition to adhering to a low-cholesterol diet and getting regular exercise. (2) Impaired fasting glucose: Code(s): R73.01 - Impaired fasting glucose Plan: Your fasting blood sugars elevated above 100 mg/dL. Impaired glucose metabolism O2 at risk for developing diabetes mellitus type 2, as well as heart attack and stroke later on. Lifestyle changes at just weight loss, healthy eating habits, and regular exercise are important, and can prevent the progression to diabetes (3) HTN (hypertension): Code(s): I10 - Essential (primary) hypertension Qualifiers: Hypertension type: essential hypertension Qualified Code(s): I10 - Essential (primary) hypertension Plan: Blood pressure at goal of less than 130/80. Continue with current medication. Reinforced importance of following a low sodium diet, getting regular exercise, and lowering stress levels. (4) Elevated transaminase level: Code(s): R74.01 - Elevation of levels of liver transaminase levels Plan: Reviewed recent labs with patient which showed mildly elevated liver enzymes. Advised to cut back on his alcohol intake, drink red wine not on a regular basis and cut it down to just 1 drink at a time Coding Level of Care Code Est Pt Level 4 (16561) Diagnoses Mixed dyslipidemia E78.2 Impaired fasting glucose R73.01 Essential hypertension I10 Hypertension type: essential hypertension Elevated transaminase level R74.01
== END 2023-04-27 16:54 | disposition home or self-care (01) ==
PROVIDERS: PCP Internal Medicine; Visit Provider Internal Medicine
DX: E78.2 Mixed hyperlipidemia (principal); R73.01 Impaired fasting glucose; I10 Essential (primary) hypertension; R74.01 Elevation of levels of liver transaminase levels
CPT/HCPCS: 99214

== ENCOUNTER 2023-08-30 09:55 | Outpatient (AMB) | payer MEDICARE, OTHER, SELFPAY ==
[2023-08-30 10:34] VITALS: BP 134/60; PULSE 65; O2SAT 99; BMI 30.4
--- NOTE | 2023-08-30 10:34 | MHC.PC.OV ---
Vital Signs 08/30/23 10:34 Height 5 ft 4 in Weight 177 lb BMI 30.4 BP 134/60 Blood Pressure Location Lt brachial Position Sitting Pulse 65 Pulse Source Pulse Oximeter Pulse Oximetry (%) 99 Oxygen Delivery Method Room Air Intake Visit Reasons: Discuss liver Intake Note: Pt is here today to discuss recent liver u/s results Allergies No Known Allergies [No Known Allergies*] Allergy (Verified 09/10/23 14:50) Medication List - Last Reconciled 08/30/23 by Mayra Monterroso MD allopurinol 300 mg PO DAILY amlodipine 10 mg PO DAILY atorvastatin 10 mg PO DAILY losartan 75 mg (1.5 x 50 mg) PO DAILY omega-3 acid ethyl esters (Lovaza) 2 caps PO BID 90 days omeprazole 40 mg PO DAILY 30 days Tobacco use date assessed: 08/30/23 Fall risk assessment: No Falls in past year Last assessed Fall Risk: 08/30/23 Dental Screening Dental Screen Date: 08/30/23 Did you have a dental visit in the last 12 months?: Yes Did you have a dental problem in the last 6 months where you did not have access to dental care?: No Was dental information given to patient?: Patient has dentist HPI Discuss liver HPI Details 77-year-old male with hyperuricemia, mixed dyslipidemia, impaired fasting glucose, hypertension , here today for his follow-up. Has been compliant with taking his medications, and tries to stick to recommended low-cholesterol diet. Has started exercising regularly now that the weather is better [facility] Medical History Elevated transaminase level Sliding hiatal hernia Difficulty swallowing solids Mixed dyslipidemia Dysphagia Elevated liver enzymes Laceration of head Tinnitus of left ear History of stress test Hyperuricemia Impaired fasting glucose Seasonal allergic rhinitis Psoriasis MALU (obstructive sleep apnea) HTN (hypertension) Surgical History No pertinent past surgical history Family History Father Cardiovascular accident Mother Stroke Social History Housing: House Alcohol intake: current Patient Tobacco Use Status: Former Tobacco user (28 years ago ) Tobacco use type: Cigarette Years Smoked: 8 years e-Cigarette/Vaping Use: Never Used Current occupational status: retired Cognitive needs: No Hearing needs: No Vision needs: No Questionnaire PHQ-9 Over the last 2 weeks, how often have you been bothered by any of the following problems? 1. Little interest or pleasure in doing things: not at all 2. Feeling down, depressed, or hopeless: not at all 3. Trouble falling or staying asleep, or sleeping too much: not at all 4. Feeling tired or having little energy: not at all 5. Poor appetite or overeating: not at all 6. Feeling bad about yourself - or that you are a failure or have let yourself or your family down: not at all 7. Trouble concentrating on things, such as reading the newspaper or watching television: not at all 8. Moving or speaking so slowly that other people could have noticed. Or the opposite - being so fidgety or restless that you have been moving around a lot more than usual: not at all 9. Thoughts that you would be better off or of hurting yourself in some way: not at all Total score: 0 Depression Screening Interpretation: Negative Depression Screening Done: Yes 62220 - PHQ-9 Billing: Yes Source: Developed by Drs. Michael Wilkinson, Leatha Faustin, Dusty Chaudhry and colleagues, with an educational debbie from [employer]. Thrive Questionnaire Date Thrive assessed: 08/30/23 I am a: Patient What is your living situation today?: I have a steady place to live Within the past 12 months, did the food you bought not last and you didn't have the money to get more?: Never true Within the past 12 months, did you worry whether your food would run out before you got money to buy more?: Never true Do you have trouble paying for medicines?: No Do you have trouble getting transportation to medical appointments?: No Do you have trouble paying your heating and electricity bill?: No Do you have trouble taking care of your child, family member or friend?: No Do you have trouble with day-to-day activities such as bathing, preparing meals, shopping, managing finances, etc.?: No Are you currently unemployed and looking for a job?: No Are you interested in more education?: No THRIVE Score: 0 AUDIT C Alcohol Use Questionnaire (AUDIT-C) 1. How often do you have a drink containing alcohol?: Never Total Score: 0 STEVENSON-7 AMB Questionnaire STEVENSON-7 Date STEVENSON - 7 assessed: 08/30/23 Feeling nervous, anxious, or on edge: 0 = Not at all Not being able to stop or control worryin = Not at all Worrying too much about different things: 0 = Not at all Trouble relaxin = Not at all Being so restless that it is hard to sit still: 0 = Not at all Becoming easily annoyed or irritable: 0 = Not at all Feeling afraid as if something awful might happen: 0 = Not at all Total STEVENSON-7 score (0-4 normal; 5-9 mild; 10-14 moderate; 15-21 severe): 0 Source: Developed by Drs. Michael Wilkinson, Leatha Faustin, Dusty Chaudhry and colleagues, with an educational debbie from [employer]. STEVENSON-7 Assessment Billing STEVENSON-7 Assessment Tool: STEVENSON-7 Assessment 91630 Review of Systems Const Reports no additional complaints ENT Reports no additional complaints Card Denies chest pain at rest, Denies chest pain with activity, Denies rapid heart rate, Denies irregular heart rhythm, Denies lightheadedness and Denies dyspnea Resp Denies cough and Denies dyspnea GI Denies abdominal pain, Denies hematochezia, Denies change in bowel habits and Denies heartburn Reports no additional complaints Musc Reports as per HPI Neuro Reports no additional complaints Endo Reports no additional complaints Aller/Immun Reports no additional complaints Physical exam (Primary Care) Vital Signs: Last Vital Signs Pulse 65 08/30/23 10:34 BP 134/60 08/30/23 10:34 Pulse Ox 99 08/30/23 10:34 Oxygen Delivery Method Room Air 08/30/23 10:34 BMI result Body Mass Index 30.4 Tobacco/Smoking Status: Tobacco use Status Tobacco use date assessed 08/30/23 08/30/23 10:36 Patient Tobacco Use Status Former Tobacco user (28 08/30/23 10:36 years ago ) Tobacco use type Cigarette 08/30/23 10:36 e-Cigarette/Vaping Use Never Used 08/30/23 10:36 PHQ-9: PHQ-9 Score PHQ-9: Total score 0 08/30/23 17:29 Depression Screening Interpretation: Negative Thrive Assessment: Date of Thrive Assessment Date Thrive assessed 08/30/23 08/30/23 10:39 Const General: comfortable, no acute distress, alert and awake Nutritional Appearance: obese Orientation/consciousness: patient oriented x3 HENMT Face and sinus: Yes face symmetric Mouth: Normal oral and palatal mucosa present, oropharynx normal and moist mucous membranes Eyes General: appearance normal, both eyes and all related structures Neck Neck: Yes full ROM, Yes no lymphadenopathy and Yes supple Thyroid: Thyroid normal Resp Effort & Inspection: normal respiratory effort and able to speak in complete sentences Auscultation: clear to auscultation bilaterally Cardio Rate: regular rate Rhythm: regular rhythm Heart sounds: S1 normal heart sound present and S2 normal heart sound present GI Inspection: Yes normal to inspection Palpation (GI): Soft to palpation, nontender, no guarding and no masses Auscultation: normal bowel sounds Neuro General: patient oriented x3, gait normal, tone normal, moves all extremities, Normal light touch and pain sensation and no focal motor deficits Gait exam (Neuro): Normal gait present Extrem General: Yes full ROM, Yes no joint enlargement, Yes no clubbing, cyanosis or edema and Yes normal gait Assessment and Plan Assessment & Plan (1) Impaired fasting glucose: Code(s): R73.01 - Impaired fasting glucose Plan: Continue with following healthy eating habits and getting regular exercise, will repeat another hemoglobin A1c and fasting glucose left (2) Hyperuricemia: Code(s): E79.0 - Hyperuricemia without signs of inflammatory arthritis and tophaceous disease Plan: Continue with allopurinol, will check again another uric acid level (3) Mixed dyslipidemia: Code(s): E78.2 - Mixed hyperlipidemia Plan: Continue with [place] 3 fatty acid supplements 2 capsules twice a day and atorvastatin 10 mg daily, fasting lipid panel ordered (4) Elevated transaminase level: Code(s): R74.01 - Elevation of levels of liver transaminase levels Plan: Repeat liver panel (5) HTN (hypertension): Code(s): I10 - Essential (primary) hypertension Qualifiers: Hypertension type: essential hypertension Qualified Code(s): I10 - Essential (primary) hypertension Plan: Continue amlodipine 10 mg daily and losartan 75 mg once a day. Reinforced importance of following a low sodium diet, getting regular exercise, and lowering stress levels. Orders: Orders Hemoglobin A1c 08/30/23 R74.01 - Elevation of levels of liver transaminase levels, E78.2 - Mixed hyperlipidemia, R73.01 - Impaired fasting glucose, E79.0 - Hyperuricemia without signs of inflammatory arthritis and tophaceous disease, I10 - Essential (primary) hypertension Vitamin D 25-OH Total 08/30/23 R74.01 - Elevation of levels of liver transaminase levels, E78.2 - Mixed hyperlipidemia, R73.01 - Impaired fasting glucose, E79.0 - Hyperuricemia without signs of inflammatory arthritis and tophaceous disease, I10 - Essential (primary) hypertension Uric Acid 08/30/23 R74.01 - Elevation of levels of liver transaminase levels, E78.2 - Mixed hyperlipidemia, R73.01 - Impaired fasting glucose, E79.0 - Hyperuricemia without signs of inflammatory arthritis and tophaceous disease, I10 - Essential (primary) hypertension Comprehensive [place]. Panel Fast 08/30/23 R74.01 - Elevation of levels of liver transaminase levels, E78.2 - Mixed hyperlipidemia, R73.01 - Impaired fasting glucose, E79.0 - Hyperuricemia without signs of inflammatory arthritis and tophaceous disease, I10 - Essential (primary) hypertension Lipid Panel 08/30/23 R74.01 - Elevation of levels of liver transaminase levels, E78.2 - Mixed hyperlipidemia, R73.01 - Impaired fasting glucose, E79.0 - Hyperuricemia without signs of inflammatory arthritis and tophaceous disease, I10 - Essential (primary) hypertension Coding Level of Care Code Est Pt Level 4 (13856) Diagnoses Impaired fasting glucose R73.01 Hyperuricemia E79.0 Mixed dyslipidemia E78.2 Elevated transaminase level R74.01 Essential hypertension I10 Hypertension type: essential hypertension Additional Codes STEVENSON-7 Assessment Billing - STEVENSON-7 Assessment Tool: STEVENSON-7 Assessment [id number] ([id number])
== END 2023-08-30 11:23 | disposition home or self-care (01) ==
PROVIDERS: PCP Internal Medicine; Visit Provider Internal Medicine
DX: R73.01 Impaired fasting glucose (principal); E79.0 Hyperuricemia without signs of inflammatory arthritis and tophaceous disease; E78.2 Mixed hyperlipidemia; R74.01 Elevation of levels of liver transaminase levels; I10 Essential (primary) hypertension
CPT/HCPCS: 99214

== ENCOUNTER 2023-08-30 11:24 | Outpatient (REF) | payer MEDICARE, OTHER, SELFPAY ==
[2023-08-30 13:33] LABS: Estimated Average Glucose 108 mg/dL; Hemoglobin A1c % 5.4 % (<6.0)
[2023-08-30 13:52] LABS: Alanine Aminotransferase 16 U/L (0-40); Albumin Level 4.3 g/dL (3.5-5.0); Alkaline Phosphatase 51 U/L (39-117); Anion Gap 11 (12-20); Aspartate Amino Transferase 16 U/L (5-37); Bilirubin Total 0.5 mg/dL (0.0-1.0); Blood Urea Nitrogen 12 mg/dL (9-16); Calcium 9.4 mg/dL (8.4-10.2); Carbon Dioxide 27 mmol/L (22-29); Chloride 106 mmol/L (96-108); Cholesterol 166 mg/dL (<200); Estimated Glomerular Filt Rate > 60; Glucose Fasting 116 mg/dL (60-99); HDL Cholesterol 49 mg/dL (>40); LDL Cholesterol Calculated 94 mg/dL (<100); Potassium 4.4 mmol/L (3.3-5.1); Sodium 140 mmol/L (135-145); Total Protein 8.3 g/dL (6.5-8.0); Triglycerides 118 mg/dL (<150); Uric Acid 6.1 mg/dL (3.4-7.0)
[2023-08-30 14:10] LABS: Vitamin D 25-OH Total 75.3 ng/mL (>30)
== END 2023-08-30 11:25 | disposition home or self-care (01) ==
LOC: HO.HMGCLDS 11:24
PROVIDERS: PCP Internal Medicine; Visit Provider Internal Medicine
DX: R74.01 Elevation of levels of liver transaminase levels (principal); E78.2 Mixed hyperlipidemia; R73.01 Impaired fasting glucose; E79.0 Hyperuricemia without signs of inflammatory arthritis and tophaceous disease; I10 Essential (primary) hypertension
CPT/HCPCS: 36415; 80053; 80061; 82306; 83036; 84550

== ENCOUNTER → 2024-01-16 10:53 | Outpatient (RCR) | payer OTHER, SELFPAY ==
[2020-04-13 10:16] VITALS: BP 152/69; PULSE 76; RESP 12; TEMP 36.3; O2SAT 100; BMI 26.8
[2020-04-13 10:24] LABS: MANUAL DIFF FLAG NO
--- NOTE | 2020-04-13 10:24 | PM.HEMONCPN ---
Medical Summary - Medical Summary Date of Service: 04/13/20 Chief complaint: Follow-up Medical Summary: Diagnosis: Normocytic anemia Longstanding normocytic anemia, [place] descent and attests that it runs in his family. Hemoglobin ranging from 12-13.9 gram/dL over the years since 2015. No iron deficiency, vitamin B12 435, folate 4.1, TSH 1.04. Hematological workup in October 2019 revealed normal vitamin B12, serum protein electrophoresis/immunofixation, normal TSH, normal LDH, mild reticulocytosis, ESR of 16. Haptoglobin 198. Normal kidney and liver functions. Elevated serum iron 173, iron saturation 55% and ferritin of 709. Interval History Interval history: Patient is here in follow-up. He is doing very well and has no complaints today. He says he lost weight by diet and exercise. He tends to have a low appetite chronically. He denies any fever, chills, night sweats, chest pain or shortness of breath. He is not on any new medications at this time. He reports no recent infections. Review of Systems - Constitutional Reports no additional constitutional complaints [facility] Medical History: Medical History (Last Updated 04/13/20 @ 09:05 by Althea Tyson) Dyslipidemia History of stress test HTN (hypertension) Hyperuricemia Impaired fasting glucose MALU (obstructive sleep apnea) Psoriasis Seasonal allergic rhinitis Family History: Family History (Last Updated 04/13/20 @ 09:06 by Althea Tyson) Father Cardiovascular accident Mother Stroke Smoking status: Former smoker Oncology Screenings - Immunizations Influenza Immunization Status: Up To Date - ECOG Performance Status ECOG Performance Status: 0 Home Medications and Allergies Home Medications Medication Instructions Recorded Confirmed Type allopurinol 1 tab PO DAILY 04/13/20 04/13/20 History amlodipine 1 tab PO DAILY 04/13/20 04/13/20 History atorvastatin 1 tab PO DAILY 04/13/20 04/13/20 History folic acid 1 tab PO DAILY 04/13/20 04/13/20 History losartan 1.5 tab PO DAILY 04/13/20 04/13/20 History omeprazole 1 cap PO DAILY 04/13/20 04/13/20 History Allergies Allergy/AdvReac Type Severity Reaction Status Date / Time No Known Allergies Allergy Unverified 02/05/20 18:57 [No Known Allergies*] Exam Vital signs: Vital Signs Temp 97.3 F 04/13/20 10:16 Pulse 76 04/13/20 10:16 Resp 12 04/13/20 10:16 BP 152/69 H 04/13/20 10:16 Pulse Ox 100 04/13/20 10:16 Intake & Output 04/12/20 04/13/20 04/13/20 18:59 06:59 18:59 Other: Weight 72 kg Weight 72 kg Body Mass Index 26.8 - Constitutional Present: no acute distress - Routine HEENT Exam Head: Present: normal inspection Eye: Present: EOMI - Routine Neck Exam Present: normal inspection - Routine Respiratory Exam Present: CTAB - Routine Cardiovascular Exam Cardiovascular: Present: RRR, S1, S2 - Routine Extremities Exam Absent: pedal edema - Routine Skin Exam Present: intact. Absent: cyanosis, erythema - Routine Neurological Exam Present: oriented X3. Absent: motor deficit Data - Labs CBC & Chem 7: 04/13/20 10:22 Progress Note: A/P (1) Bicytopenia Status: Acute Assessment and plan: 1. This is pleasant 74-year-old [place] male with chronic normocytic anemia and mild intermittent leukopenia. He is asymptomatic. No evidence of hemolysis, kidney or liver problems. Blood work showed borderline low folic acid levels, he is now on supplementation. I discussed results of blood work, hematological workup was negative. He was advised to stay on folic acid 1 mg daily. 2. Iron overload state. He has iron saturation of 55% and ferritin of 709. Repeat iron studies are normal. Hemochromatosis gene mutation test is pending. Follow-up in 6 months. - Time Spent With Patient Total time spent is greater than 50% in coordination of care (as documented) at patient's floor/unit and/or counseling patient: 15 - 24 minutes
[2020-04-13 10:36] LABS: Basophils Percent Auto 0.3 % (0-2); Eosinophils Absolute Auto 0.2 X10*3/uL (0.0-0.4); Eosinophils Percent Auto 2.4 % (0-4); Hemoglobin 12.4 g/dl (14.0-18.0); Imm Gran Abs Auto 0.01 X10*3/uL (0.00-0.03); Imm Gran Pct Auto 0.2 % (0.0-0.4); Lymphocytes Absolute Auto 1.9 X10*3/uL (1.2-4.9); Lymphocytes Percent Auto 31.5 % (20-40); Mean Corpuscular HGB Conc 35.4 g/dl (31.0-36.0); Mean Corpuscular Hemoglobin 33.1 pg (27.0-33.0); Mean Corpuscular Volume 93.3 fL (80-98); Mean Platelet Volume 9.2 fL (9.4-12.4); Monocytes Absolute Auto 0.4 X10*3/uL (0.1-1.2); Neutrophils Absolute Auto 3.6 X10*3/uL (2.0-8.3); Neutrophils Percent Auto 58.6 % (45-73); Platelet Count 189 X10*3/uL (160-400); Red Blood Count 3.75 X10*6/uL (4.60-5.80); Red Cell Distribution Width 11.7 % (11.0-16.0); White Blood Count 6.1 X10*3/uL (4.8-10.8)
[2020-04-13 11:03] LABS: Iron 72 mcg/dL (45-160); Percent Iron Saturation 22 % (15-50); Total Iron Binding Capacity 325 mcg/dL (228-428); Unsaturated Iron Binding 253 ug/dL
== END | disposition home or self-care (01) ==
LOC: HO.ONC 04-13 10:05
PROVIDERS: PCP Internal Medicine; Visit Provider Internal Medicine
DX: D64.9 Anemia, unspecified (principal); D72.819 Decreased white blood cell count, unspecified; E83.19 Other disorders of iron metabolism; Z79.899 Other long term (current) drug therapy
CPT/HCPCS: 36415; 81256; 83540; 85025; 99214

== ENCOUNTER 2024-03-15 10:38 | Outpatient (REF) | payer MEDICARE, OTHER, SELFPAY ==
[2024-03-15 13:00] LABS: Estimated Average Glucose 105 mg/dL; Hemoglobin A1C 133.6835 umol/L; Hemoglobin A1c % 5.3 % (<6.0); Total Hemoglobin (HGBA1C) 3877.6579 umol/L
[2024-03-15 13:03] LABS: Alanine Aminotransferase 38 U/L (0-40); Anion Gap 12 (12-20); Aspartate Amino Transferase 43 U/L (5-37); Blood Urea Nitrogen 10 mg/dL (9-16); Calcium 9.1 mg/dL (8.4-10.2); Carbon Dioxide 28 mmol/L (22-29); Chloride 101 mmol/L (96-108); Cholesterol 166 mg/dL (<200); Estimated Glomerular Filt Rate > 60; Glucose Fasting 117 mg/dL (60-99); HDL Cholesterol 62 mg/dL (>40); LDL Cholesterol Calculated 55 mg/dL (<100); Sodium 137 mmol/L (135-145); Triglycerides 246 mg/dL (<150); Uric Acid 4.7 mg/dL (3.4-7.0)
== END 2024-03-15 10:39 | disposition home or self-care (01) ==
LOC: HO.HMGCLDS 10:38
PROVIDERS: PCP Internal Medicine; Visit Provider Internal Medicine
DX: E78.2 Mixed hyperlipidemia (principal); R73.01 Impaired fasting glucose; I10 Essential (primary) hypertension; E79.0 Hyperuricemia without signs of inflammatory arthritis and tophaceous disease
CPT/HCPCS: 36415; 80048; 80061; 83036; 84450; 84460; 84550

== ENCOUNTER 2024-03-19 08:31 | Outpatient (AMB) | payer MEDICARE, OTHER, SELFPAY ==
[2024-03-19 08:33] VITALS: BP 134/60; PULSE 96; O2SAT 98; BMI 30.7
--- NOTE | 2024-03-19 08:33 | MHC.PC.OV ---
Vital Signs 03/19/24 08:33 Height 5 ft 4 in Weight 179 lb BMI 30.7 BP 134/60 Blood Pressure Location Rt brachial Position Sitting Pulse 96 Pulse Source Pulse Oximeter Pulse Oximetry (%) 98 Oxygen Delivery Method Room Air Intake Visit Reasons: PE Intake Note: Pt is here today for his PE: Last colonoscopy 05/30/16 Allergies No Known Allergies [No Known Allergies*] Allergy (Verified 03/19/24 08:48) Medication List - Last Reconciled 03/19/24 by Mayra Monterroso MD allopurinol 300 mg PO DAILY amlodipine 10 mg PO DAILY atorvastatin 10 mg PO DAILY losartan 75 mg (1.5 x 50 mg) PO DAILY omega-3 acid ethyl esters (Lovaza) 2 caps PO BID 90 days omeprazole 40 mg PO DAILY Tobacco use date assessed: 03/19/24 Fall risk assessment: No Falls in past year Last assessed Fall Risk: 03/19/24 Dental Screening Dental Screen Date: 03/19/24 Did you have a dental visit in the last 12 months?: No Did you have a dental problem in the last 6 months where you did not have access to dental care?: No Was dental information given to patient?: No HPI PE HPI Details 78year-old male with hyperuricemia, mixed dyslipidemia, impaired fasting glucose, hypertension , here today for his physical exam. He has been feeling well, compliant with taking his medications. He is up-to-date with his screening colonoscopy done 05/30/2016 with negative findings, done by Dr. Borrego, repeat due again in 2026. [facility] Medical History Elevated transaminase level Sliding hiatal hernia Difficulty swallowing solids Mixed dyslipidemia Dysphagia Elevated liver enzymes Laceration of head Tinnitus of left ear History of stress test Hyperuricemia Impaired fasting glucose Seasonal allergic rhinitis Psoriasis MALU (obstructive sleep apnea) HTN (hypertension) Surgical History No pertinent past surgical history Family History Father Cardiovascular accident Mother Stroke Social History Housing: House Alcohol intake: current Patient Tobacco Use Status: Former Tobacco user (28 years ago ) Tobacco use type: Cigarette Years Smoked: 8 years e-Cigarette/Vaping Use: Never Used Current occupational status: retired Cognitive needs: No Hearing needs: No Vision needs: No Questionnaire PHQ-9 Over the last 2 weeks, how often have you been bothered by any of the following problems? Depression Screening Interpretation: Negative Depression Screening Done: Yes Source: Developed by Leatha Crow Kurt Kroenke and colleagues, with an educational debbie from [employer]. Thrive Questionnaire Date Thrive assessed: 08/30/23 STEVENSON-7 AMB Questionnaire STEVENSON-7 Date STEVENSON - 7 assessed: 08/30/23 Source: Developed by Drs. Michael Wilkinson, Leatha Faustin, Dusty Chaudhry and colleagues, with an educational debbie from [employer]. Review of Systems Const Reports no additional complaints Eyes Denies change in vision ENT Details: Has full dentures Reports no additional complaints Card Denies chest pain at rest, Denies chest pain with activity, Denies rapid heart rate, Denies irregular heart rhythm, Denies lightheadedness and Denies dyspnea Resp Denies cough and Denies dyspnea GI Denies abdominal pain, Denies hematochezia, Denies change in bowel habits and Denies heartburn Reports no additional complaints Musc Reports as per HPI Skin/Breast Denies dry skin and Denies rash Neuro Reports no additional complaints Psych Reports no additional complaints Endo Reports no additional complaints Jimi/Lymph Reports no additional complaints Aller/Immun Reports no additional complaints Physical exam (Primary Care) Vital Signs: Last Vital Signs Pulse 96 03/19/24 08:33 BP 134/60 03/19/24 08:33 Pulse Ox 98 03/19/24 08:33 Oxygen Delivery Method Room Air 03/19/24 08:33 BMI result Body Mass Index 30.7 Tobacco/Smoking Status: Tobacco use Status Tobacco use date assessed 03/19/24 03/19/24 08:38 Patient Tobacco Use Status Former Tobacco user (03/19/24 08:38 years ago ) Tobacco use type Cigarette 03/19/24 08:38 e-Cigarette/Vaping Use Never Used 03/19/24 08:38 Depression Screening Interpretation: Negative Thrive Assessment: Date of Thrive Assessment Date Thrive assessed 08/30/23 03/19/24 08:38 Advance Care Planning discussion: Completed/Scanned Date of discussion: 03/19/24 Who was present: Patient Forms completed: Health Care Proxy and MOLST Time spent: 16-45 minutes Actual minutes spent: 5 Const General: comfortable, no acute distress, alert and awake Nutritional Appearance: obese Orientation/consciousness: patient oriented x3 HENMT Face and sinus: Yes face symmetric Mouth: Normal oral and palatal mucosa present, oropharynx normal and moist mucous membranes Eyes General: appearance normal, both eyes and all related structures Neck Neck: Yes full ROM, Yes no lymphadenopathy and Yes supple Thyroid: Thyroid normal Resp Effort & Inspection: normal respiratory effort and able to speak in complete sentences Auscultation: clear to auscultation bilaterally Cardio Rate: regular rate Rhythm: regular rhythm Heart sounds: S1 normal heart sound present and S2 normal heart sound present GI Inspection: Yes normal to inspection Palpation (GI): Soft to palpation, nontender, no guarding and no masses Auscultation: normal bowel sounds General: Yes no CVA tenderness Male General Exam: Yes normal external exam Back/Spine/Pelvis Back: no CVA tenderness and No back tenderness Skin Other: Pedunculated skin lesion on inner aspect of left thigh, dry slightly raised patch on lower extremity Neuro General: patient oriented x3, gait normal, tone normal, moves all extremities, Normal light touch and pain sensation and no focal motor deficits Gait exam (Neuro): Normal gait present Extrem General: Yes full ROM, Yes no joint enlargement, Yes no clubbing, cyanosis or edema and Yes normal gait Psych Appearance: grossly normal and well kempt Mental Status: mental status grossly normal Speech and movement: Normal speech and movement present Affect: normal affect Thought process: Normal thought process present Thought content: Normal thought content present Results Reviewed Results Reviewed: Name: Osorio Boykin Age/Sex: 78/M : 1945 Unit#: [id number] Attend Dr: Mayra Monterroso MD Re03/15/24 Status: DEP REF Location: [facility] Disch: SPEC : [id number] KAROL: 03/15/24 STATUS: COMP REQ : [id number] RECD: 03/15/[address]: Mayra Monterroso MD COMP: 03/15/24-1303 ENTERED: 03/15/24-10[address] [facility] [address]: ORDERED: Met Prof Fast, Uric, AST, ALT, Lipid Panel Test Result Flag Reference Sodium 137 135-145 mmol/L Potassium 4.0 3.3-5.1 mmol/L CL 101 96-108 mmol/L CO2 28 22-29 mmol/L Gap 12 12-20 BUN 10 9-16 mg/dL Creat 0.92 0.5-1.4 mg/dL EGFR > 60 NOTE: For -Nepalese individuals, multiply the result by 1.210. Chronic Kidney Disease: Estimated GFR < 60 mL/min/1.73m2 Severe Kidney Disease: Estimated GFR < 15 mL/min/1.73m2 FBS 117 H 60-99 mg/dL A fasting glucose from 100-125 mg/dl is considered impaired (pre-diabetes). Uric Acid 4.7 3.4-7.0 mg/dL CA 9.1 8.4-10.2 mg/dL AST (GOT) 43 H 5-37 U/L ALT (GPT) 38 0-40 U/L Triglyceride 246 H <150 mg/dL Desirable Triglyceride: less than 150 mg/dL Borderline High Triglyceride 150-199 mg/dL High Triglyceride: 200-499 mg/dL Very High Triglyceride: greater than or equal to 5OO mg/dL Cholesterol 166 <200 mg/dL Desirable Cholesterol: less than 200 mg/dL Borderline High Cholesterol: 200-239 mg/dL High Cholesterol: greater than 239 mg/dL LDL Calculated 55 <100 mg/dL Desirable LDL: less than 100 mg/dL Near Optimal/Above Optimal LDL: 110-129 mg/dL Borderline High LDL: 130-159 mg/dL High LDL: 160-189 mg/dL Very High LDL: greater than or equal to 190 mg/dL HDL 62 >40 mg/dL Desirable HDL: greater than 40 mg/dL Note: This HDL assay may give artificially low results in patients with liver disease. Coding Level of Care Code Est Pt Prev Care >65y(16600) Diagnoses Annual visit for general adult medical examination with abnormal findings Z00.01 Skin lesion of left lower extremity L98.9 Essential hypertension I10 Hypertension type: essential hypertension Impaired fasting glucose R73.01 Mixed dyslipidemia E78.2 Advanced directives, counseling/discussion Z71.89 Eczema L30.9 Additional Codes Vital Signs *Quality* - Advance Care Planning discussion: Completed/Scanned ([id number]) Vital Signs *Quality* - Time spent: 16-45 minutes ([id number]) Assessment & Plan Assessment & Plan (1) Annual visit for general adult medical examination with abnormal findings: Code(s): Z00.01 - Encounter for general adult medical examination with abnormal findings Category: Medical Plan: Recent labs reviewed with patient. Advised to get regular eye exams, at least every 2 years. Take adequate calcium in diet and vitamin-D 3 at 2000 IU per cap once a day, in addition to weight-bearing exercises to help maintain good muscle tone and weight control. Instructed to do self-testicular exam check for any mass. Up-to-date with his screening colonoscopy. Reminded to get his yearly flu vaccine and COVID booster, up-to-date with his pneumococcal vaccination, shingles vaccine Tdap (2) Skin lesion of left lower extremity: Code(s): L98.9 - Disorder of the skin and subcutaneous tissue, unspecified Plan: General surgery consult obtained for possible excision of skin lesion (3) HTN (hypertension): Code(s): I10 - Essential (primary) hypertension Category: Medical Qualifiers: Hypertension type: essential hypertension Qualified Code(s): I10 - Essential (primary) hypertension Plan: Blood pressure at goal of less than 130/80. Continue with current medication. Reinforced importance of following a low sodium diet, getting regular exercise, and lowering stress levels. (4) Impaired fasting glucose: Code(s): R73.01 - Impaired fasting glucose Category: Medical Plan: Your previous fasting blood sugars were elevated above 100 mg/dL. Impaired glucose metabolism increases the risk for developing diabetes mellitus type 2, as well as heart attack and stroke later on. Lifestyle changes that promotes weight loss, healthy eating habits, and regular exercise are important, and can prevent the progression to diabetes (5) Mixed dyslipidemia: Code(s): E78.2 - Mixed hyperlipidemia Category: Medical Plan: Fasting lipids are within normal limits continue with current dose of atorvastatin 10 mg 1 tablet every other day (6) Advanced directives, counseling/discussion: Code(s): Z71.89 - Other specified counseling Plan: Initiated the conversation about Advanced Directives. Advanced Directives help patients prepare for current and future decisions about their medical treatment and place of care. Discussed with patient that it is a process where a patients current condition and prognosis are reviewed, their wishes for information regarding their illness are elicited, and likely medical dilemmas are presented and options discussed. MOLST and healthcare proxy form completed today. The form can be amended as needed, reviewed yearly and make changes as needed (7) Eczema: Code(s): L30.9 - Dermatitis, unspecified Category: Medical Plan: Prescription sent for clobetasol 0.025%, cream, apply sparingly to affected area once a day for no more than 10 days at a time. Orders: Orders Alanine Aminotransferase 06/28/24 E78.2 - Mixed hyperlipidemia, I10 - Essential (primary) hypertension, R73.01 - Impaired fasting glucose Basic Metabolic Panel Fasting 06/28/24 E78.2 - Mixed hyperlipidemia, I10 - Essential (primary) hypertension, R73.01 - Impaired fasting glucose PSA,Total (Free>4and<10) 06/28/24 E79.0 - Hyperuricemia without signs of inflammatory arthritis and tophaceous disease, Z12.5 - Encounter for screening for malignant neoplasm of prostate Uric Acid 06/28/24 E79.0 - Hyperuricemia without signs of inflammatory arthritis and tophaceous disease Hemoglobin A1c 06/28/24 E78.2 - Mixed hyperlipidemia, I10 - Essential (primary) hypertension, R73.01 - Impaired fasting glucose Aspartate Amino Transferase 06/28/24 E78.2 - Mixed hyperlipidemia, I10 - Essential (primary) hypertension, R73.01 - Impaired fasting glucose Lipid Panel 06/28/24 E78.2 - Mixed hyperlipidemia, I10 - Essential (primary) hypertension, R73.01 - Impaired fasting glucose Vitamin D 25-OH Total 06/28/24 E78.2 - Mixed hyperlipidemia, I10 - Essential (primary) hypertension, R73.01 - Impaired fasting glucose Complete Blood Count Auto Diff 06/28/24 D75.89 - Other specified diseases of blood and blood-forming organs, E79.0 - Hyperuricemia without signs of inflammatory arthritis and tophaceous disease Referrals General Surgery Referral L98.9 - Disorder of the skin and subcutaneous tissue, unspecified Medications: New clobetasol 0.025% 1 appl topical BEDTIME 10 days PRN 100 grams 0RF eczema Changed From atorvastatin 10 mg PO DAILY 90 tabs 3RF To atorvastatin 10 mg PO Q2D 3 months 45 tabs 4RF
== END 2024-03-19 09:17 | disposition home or self-care (01) ==
LOC: HO.HMCC 08:31
PROVIDERS: PCP Internal Medicine; Visit Provider Internal Medicine
DX: Z00.00 Encounter for general adult medical examination without abnormal findings (principal); L98.9 Disorder of the skin and subcutaneous tissue, unspecified; I10 Essential (primary) hypertension; R73.01 Impaired fasting glucose; E78.2 Mixed hyperlipidemia; L30.9 Dermatitis, unspecified

== ENCOUNTER → 2024-03-19 08:31 | Outpatient (BNVA) | payer MEDICARE, OTHER, SELFPAY | PROVIDERS: PCP Internal Medicine; Visit Provider Internal Medicine | DX: Z00.01 Encounter for general adult medical examination with abnormal findings (principal); L98.9 Disorder of the skin and subcutaneous tissue, unspecified; I10 Essential (primary) hypertension; R73.01 Impaired fasting glucose; E78.2 Mixed hyperlipidemia; L30.9 Dermatitis, unspecified; Z71.89 Other specified counseling | CPT/HCPCS: 99397 ==

== ENCOUNTER 2024-04-28 15:27 | Outpatient (REF) | payer MEDICARE, OTHER, SELFPAY | END 2024-04-28 15:28 | disposition home or self-care (01) | LOC: HO.LNP 15:27 | PROVIDERS: PCP Internal Medicine; Visit Provider Surgery | DX: L98.9 Disorder of the skin and subcutaneous tissue, unspecified (principal); L91.8 Other hypertrophic disorders of the skin | CPT/HCPCS: 11402; 88304; 99202 ==

== ENCOUNTER 2024-04-28 15:27 | Outpatient (AMB) | payer MEDICARE, OTHER, SELFPAY ==
[2024-04-28 15:28] VITALS: BMI 30.7
--- NOTE | 2024-04-28 15:28 | A.OFFVIS_ITS ---
Vital Signs 04/28/24 15:28 Height 5 ft 4 in Weight 178 lb 15.999 oz BMI 30.7 Intake Visit Reasons: Painful skin lesion inner aspect of left thigh Intake Note: This patient presents for painful skin lesion inner aspect of the left thigh. Pt c/o; reports skin lesion inner left thigh. 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 He says he has had this for many years. He has been starting to bother him because it becomes uncomfortable and gets irritated with his underwear. He wants this removed. [facility] Medical History Skin lesion of left leg Elevated transaminase level Sliding hiatal hernia Difficulty swallowing solids Mixed dyslipidemia Dysphagia Elevated liver enzymes Laceration of head Tinnitus of left ear History of stress test Hyperuricemia Impaired fasting glucose Seasonal allergic rhinitis Psoriasis MALU (obstructive sleep apnea) HTN (hypertension) Surgical History No pertinent past surgical history Family History Father Cardiovascular accident Mother Stroke Social History Housing: House Alcohol intake: current Patient Tobacco Use Status: Former Tobacco user Tobacco use type: Cigarette Years Smoked: 8 years e-Cigarette/Vaping Use: Never Used Current occupational status: retired Cognitive needs: No Hearing needs: No Vision needs: No Review of Systems Const Denies chills and Denies fever(s) Card Denies chest pain, Denies dyspnea and Denies dyspnea on exertion Resp Denies cough, Denies dyspnea and Denies dyspnea on exertion GI Denies hematochezia and Denies change in bowel habits Denies hematuria and Denies difficulty urinating Musc Denies back pain and Denies limited range of motion Neuro Denies focal weakness and Denies convulsions Psych Denies depression and Denies mood swings Physical Exam Vital Signs: BMI result Body Mass Index 30.7 Const General: comfortable and no acute distress Orientation/consciousness: patient oriented x3 Neck Neck: Yes no lymphadenopathy Resp Auscultation: clear to auscultation bilaterally Cardio Rhythm: regular rhythm GI Palpation (GI): Soft to palpation, nontender and no guarding Neuro General: patient oriented x3 Extrem Other: Left medial thigh near the groin - soft, lipomatous skin lesion, about 1.5 cm long, with a narrow stalk Office Procedures Excision Details: He was in frog-leg position. The area of the skin lesion on the left medial thigh was prepped and draped. Lidocaine 1% was used for local anesthesia. I made an elliptical incision around this at the base using blade 15. This was carried down through the full-thickness of the skin and subcutaneous fat to excise this entire lesion. The lesion was about 1.5 cm long with a narrow base. The skin incision was closed with nylon 3-0 interrupted sutures. Dressings were applied. He tolerated the procedure well. There was minimal blood loss. [id number]-[id number]/arms/legs 1.1-2cm Procedure code (CPT) selection complete Assessment & Plan Assessment & Plan (1) Skin lesion of left leg: Code(s): L98.9 - Disorder of the skin and subcutaneous tissue, unspecified Category: Medical Plan He says that these skin lesions been bothering him because of discomfort and this irritates his underwear all the time. He wants this removed. I explained the technique of excision. I reviewed the risks including but not limited to bleeding and infections, as well as the benefits and alternatives. He wanted to proceed Excision was done in the office under local anesthesia. He tolerated this well. He was given wound care instructions and will be seen for remove the sutures. Coding Level of Care Code New Pt Level 3 (65449) Diagnoses Skin lesion of left leg L98.9 CPT Codes Trunk/Arms/Legs - CPT: 35970-djuzn/arms/legs 1.1-2cm ([id number])
== END 2024-04-28 15:56 | disposition home or self-care (01) ==
PROVIDERS: PCP Internal Medicine; Visit Provider Surgery
DX: L98.9 Disorder of the skin and subcutaneous tissue, unspecified (principal)
CPT/HCPCS: 11402; 99203

== ENCOUNTER 2024-05-12 12:46 | Outpatient (AMB) | payer MEDICARE, OTHER, SELFPAY ==
--- NOTE | 2024-05-12 12:55 | MHC.OFFVIS ---
Vital Signs 05/12/24 12:56 Height 5 ft 4 in Weight 178 lb 15.999 oz BMI 30.7 Intake Visit Reasons: s/p remove Sutures Intake Note: This patient presents for suture removal status post Skin lesion of left leg. Pt c/o; reports no complaints at this time. 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 He tolerated procedure well. He currently denies significant complaints. [facility] Medical History Skin lesion of left leg Elevated transaminase level Sliding hiatal hernia Difficulty swallowing solids Mixed dyslipidemia Dysphagia Elevated liver enzymes Laceration of head Tinnitus of left ear History of stress test Hyperuricemia Impaired fasting glucose Seasonal allergic rhinitis Psoriasis MALU (obstructive sleep apnea) HTN (hypertension) Surgical History No pertinent past surgical history Family History Father Cardiovascular accident Mother Stroke Social History Housing: House Alcohol intake: current Patient Tobacco Use Status: Former Tobacco user Tobacco use type: Cigarette Years Smoked: 8 years e-Cigarette/Vaping Use: Never Used Current occupational status: retired Cognitive needs: No Hearing needs: No Vision needs: No Review of Systems Const Denies chills and Denies fever(s) Physical Exam Vital Signs: BMI result Body Mass Index 30.7 Const General: comfortable and no acute distress Extrem Other: Excision site in the left medial thigh is well healed, sutures intact Assessment & Plan Assessment & Plan (1) Skin lesion of left leg: Code(s): L98.9 - Disorder of the skin and subcutaneous tissue, unspecified Category: Medical Plan: Status post excision. The incision is well healed. I removed his sutures. His path report shows a fibroepithelial polyp. He understands the benign nature of this pathology. He can follow up on a p.r.n. basis. Coding Level of Care Code Global (01025) Diagnoses Skin lesion of left leg L98.9
[2024-05-12 12:56] VITALS: BMI 30.7
== END 2024-05-12 13:23 | disposition home or self-care (01) ==
PROVIDERS: PCP Internal Medicine; Visit Provider Surgery
DX: L98.9 Disorder of the skin and subcutaneous tissue, unspecified (principal)
CPT/HCPCS: 99024

== ENCOUNTER → 2024-05-12 12:46 | Outpatient (BNVA) | payer MEDICARE, OTHER, SELFPAY | PROVIDERS: PCP Internal Medicine; Visit Provider Surgery | DX: Z48.1 Encounter for planned postprocedural wound closure (principal); Z87.2 Personal history of diseases of the skin and subcutaneous tissue | CPT/HCPCS: 99212 ==

== ENCOUNTER 2024-07-01 10:28 | Outpatient (AMB) | payer MEDICARE, OTHER, SELFPAY ==
[2024-07-01 10:36] VITALS: BP 128/60; PULSE 86; RESP 18; TEMP 36.6; O2SAT 96; BMI 32.4
--- NOTE | 2024-07-01 10:36 | MHC.PC.OV ---
Vital Signs 07/01/24 10:36 Height 5 ft 4 in Weight 189 lb BMI 32.4 BP 128/60 Blood Pressure Location Lt brachial Position Sitting Respiration 18 Pulse 86 Temp 97.8 F Temp Source Oral Pulse Oximetry (%) 96 Oxygen Delivery Method Room Air Intake Visit Reasons: 3 months follow up Intake Note: Pt is here today for his 3mo. f/u Allergies No Known Allergies [No Known Allergies*] Allergy (Verified 07/01/24 10:44) Medication List - Last Reconciled 07/01/24 by Mayra Monterroso MD allopurinol 300 mg PO DAILY amlodipine 10 mg PO DAILY atorvastatin 10 mg PO Q2D 3 months clobetasol 0.05% 1 appl topical BEDTIME PRN 10 days losartan 75 mg (1.5 x 50 mg) PO DAILY omega-3 acid ethyl esters (Lovaza) 2 caps PO BID 90 days omeprazole 40 mg PO DAILY Tobacco use date assessed: 07/01/24 Fall risk assessment: No Falls in past year Last assessed Fall Risk: 07/01/24 Dental Screening Dental Screen Date: 07/01/24 Did you have a dental visit in the last 12 months?: Yes Did you have a dental problem in the last 6 months where you did not have access to dental care?: No Was dental information given to patient?: Patient has dentist HPI 3 months follow up HPI Details 78-year-old male with history of gout, hypertension, mixed dyslipidemia, psoriasis, here today for his 3 month follow-up. Patient however forgot to get his fasting labs done prior to appointment .Blood pressure has been stable and controlled on current dose of amlodipine and losartan [facility] Medical History (Updated 07/01/24 @ 11:03 by Mayra Monterroso MD) Skin lesion of left leg Elevated transaminase level Sliding hiatal hernia Difficulty swallowing solids Mixed dyslipidemia Dysphagia Elevated liver enzymes Laceration of head Tinnitus of left ear History of stress test Hyperuricemia Impaired fasting glucose Seasonal allergic rhinitis Psoriasis MALU (obstructive sleep apnea) HTN (hypertension) Surgical History No pertinent past surgical history Family History Father Cardiovascular accident Mother Stroke Social History Housing: House Alcohol intake: current Patient Tobacco Use Status: Former Tobacco user Tobacco use type: Cigarette Years Smoked: 8 years e-Cigarette/Vaping Use: Never Used Current occupational status: retired Cognitive needs: No Hearing needs: No Vision needs: No Questionnaire Thrive Questionnaire Date Thrive assessed: 06/24/24 I am a: Patient What is your living situation today?: I have a steady place to live Within the past 12 months, did the food you bought not last and you didn't have the money to get more?: Never true Within the past 12 months, did you worry whether your food would run out before you got money to buy more?: Never true Do you have trouble paying for medicines?: No Do you have trouble getting transportation to medical appointments?: No Do you have trouble paying your heating and electricity bill?: No Do you have trouble taking care of your child, family member or friend?: No Do you have trouble with day-to-day activities such as bathing, preparing meals, shopping, managing finances, etc.?: No Are you currently unemployed and looking for a job?: Yes Are you interested in more education?: No Please select the resources that you would like help with: None Currently or been in a relationship where the following occur: No concerns reported THRIVE Score: 0 AUDIT C Alcohol Use Questionnaire (AUDIT-C) 1. How often do you have a drink containing alcohol?: 2-3 times a week 2. How many drinks containing alcohol do you have on a typical day when you are drinking?: 1 or 2 3. How often do you have six or more drinks on one occasion?: Less than monthly Total Score: 4 STEVENSON-7 AMB Questionnaire STEVENSON-7 Date STEVENSON - 7 assessed: 08/30/23 Source: Developed by Drs. Michael Wilkinson, Leatha Faustin, Dusty Chaudhry and colleagues, with an educational debbie from [employer]. Review of Systems Const Reports no additional complaints Eyes Denies change in vision ENT Details: Has full dentures Reports no additional complaints Card Denies chest pain at rest, Denies chest pain with activity, Denies rapid heart rate, Denies irregular heart rhythm, Denies lightheadedness and Denies dyspnea Resp Denies cough and Denies dyspnea GI Denies abdominal pain, Denies hematochezia, Denies change in bowel habits and Denies heartburn Reports no additional complaints Musc Reports as per HPI Skin/Breast Denies rash Neuro Reports no additional complaints Psych Reports no additional complaints Endo Reports no additional complaints Jimi/Lymph Reports no additional complaints Aller/Immun Reports no additional complaints Physical exam (Primary Care) Vital Signs: Last Vital Signs Temp 97.8 F 07/01/24 10:36 Pulse 86 07/01/24 10:36 Resp 18 07/01/24 10:36 BP 128/60 07/01/24 10:36 Pulse Ox 96 07/01/24 10:36 Oxygen Delivery Method Room Air 07/01/24 10:36 BMI result Body Mass Index 32.4 Tobacco/Smoking Status: Tobacco use Status Tobacco use date assessed 07/01/24 07/01/24 10:43 Patient Tobacco Use Status Former Tobacco user 07/01/24 10:36 Tobacco use type Cigarette 07/01/24 10:36 e-Cigarette/Vaping Use Never Used 07/01/24 10:36 Thrive Assessment: Date of Thrive Assessment Date Thrive assessed 06/24/24 07/01/24 10:36 Currently or been in a relationship where the following occur: No concerns reported Const General: no acute distress, alert and awake Nutritional Appearance: obese Orientation/consciousness: patient oriented x3 HENMT Face and sinus: Yes face symmetric Mouth: moist mucous membranes Eyes General: appearance normal, both eyes and all related structures Neck Neck: Yes full ROM, Yes no lymphadenopathy and Yes supple Resp Effort & Inspection: normal respiratory effort and able to speak in complete sentences Auscultation: clear to auscultation bilaterally Cardio Rate: regular rate Rhythm: regular rhythm Heart sounds: S1 normal heart sound present and S2 normal heart sound present GI Inspection: Yes normal to inspection Palpation (GI): Soft to palpation, nontender, no guarding and no masses Auscultation: normal bowel sounds Neuro General: patient oriented x3, gait normal, tone normal, moves all extremities, Normal light touch and pain sensation and no focal motor deficits Gait exam (Neuro): Normal gait present Extrem General: Yes full ROM, Yes no joint enlargement, Yes no clubbing, cyanosis or edema and Yes normal gait Coding Level of Care Code Est Pt Level 4 (16148) Complex EM visit Add On G2211 Diagnoses Mixed dyslipidemia E78.2 Impaired fasting glucose R73.01 Hyperuricemia E79.0 Essential hypertension I10 Hypertension type: essential hypertension Assessment & Plan Assessment & Plan (1) Mixed dyslipidemia: Code(s): E78.2 - Mixed hyperlipidemia Category: Medical Plan: fasting lipid profile ordered . Currently taking atorvastatin 10 mg every other day , stressed importance of adherence to low-cholesterol diet and regular exercise, at least 30 minutes 3 to 4 times a week. Advised patient to make healthy food choices, eat more fruits, vegetables, whole grains, wild caught fish and low-fat dairy. Limit amount of meat and fried or fatty food products, as well as processed foods and fast foods. (2) Impaired fasting glucose: Code(s): R73.01 - Impaired fasting glucose Category: Medical Plan: Your previous fasting blood sugars were elevated above 100 mg/dL. Impaired glucose metabolism increases the risk for developing diabetes mellitus type 2, as well as heart attack and stroke later on. Lifestyle changes that promotes weight loss, healthy eating habits, and regular exercise are important, and can prevent the progression to diabetes (3) Hyperuricemia: Code(s): E79.0 - Hyperuricemia without signs of inflammatory arthritis and tophaceous disease Category: Medical Plan: Advised to get fasting labs done to check a uric acid level, currently on allopurinol 300 mg daily, has not had any gout attacks since starting medication (4) HTN (hypertension): Code(s): I10 - Essential (primary) hypertension Category: Medical Qualifiers: Hypertension type: essential hypertension Qualified Code(s): I10 - Essential (primary) hypertension Plan: Blood pressure at goal of less than 130/80. Continue with current medication. Reinforced importance of following a low sodium diet, getting regular exercise, and lowering stress levels.
--- OUTSIDE RECORDS SUMMARY | 2024-07-01 11:41 | XMS_ITS ---
Author Organization [facility] Address [address] [place] [address] Care Team Providers Care Rustic Fence Builder Name Role Phone Loc BRIAN, Mayra Primary Care Provider Lenard Perez Jr ALLERGIES No Known Allergies REASON FOR VISIT Patient presents today for in consultation MEDICATIONS Medication SIG (Take, Route, Frequency, Duration) Notes Start Date End Date Status Multi Vitamin - 1 tablet Orally Once a day for 30 day(s) Active amLODIPine Besylate 10 MG Oral for 90 Active Allopurinol 300 MG Oral for 90 Active Losartan Potassium 50 MG Oral for 90 Active Omeprazole 40 MG Oral for 90 A ctive Fish Oil 1000 MG 1 capsule Orally Thr ee times a day for 30 day(s) Active SOCIAL HISTORY Tobacco Use: Social History Observation Description Date Details (start date - stop date) Former Smoker NA - NA Sex Assigned At : Social History Observation Description Sex Assigned At Unknown Tobacco Use/Smoking Question Answer Notes Patient is a former smoker Alcohol Screen Question Answer Notes Did you have a drink contain ing alcohol in the past year? Yes How often did you have a dri nk containing alcohol in the past year? 4 or more times a week (4 points) How many drinks did you have on a typical day when you were drinking in the past year? 3 or 4 drinks (1 point) How often did you have 6 or more drinks on one occasion in the past year? 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) Active confirmed 232889109 Problem Colon cancer screening (Z12.11) Active confirmed 677244103 VITAL SIGNS BMI 29.57 kg/m2 02/13/2024 Blood pressure systolic 000 mm Hg 02/13/20 24 Blood pressure diastolic 00 mm Hg 024 Height 5 ft 4.5 in in 02/13/2024 Temperature 98.6 degrees Fahrenheit 02/13/20 24 Weight 175 lbs 02/13/2024 Encounters Encounter Location Date Provider Diagnosis [facility] [address] [place] [address] 02/13/2024 Lenard Borrego Jr Esophageal stricture K22.2 ; 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 K22.70 and Colon cancer screening Z12.11 ASSESSMENTS Encounter Date Diagnosis Assessment Notes Treatment Notes Treatment Clinical Notes 02/13/2024 Esophageal stricture (ICD-10 - K22.2) Gastroesophageal reflux disease material was printed 02/13/2024 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 (ICD-10 - K22.70) 02/13/2024 Colon cancer screening (ICD-10 - Z12.11) PLAN OF TREATMENT Treatment Notes Assessment Notes Esophageal stricture Gastroesophageal re flux disease material was printed Next Appt Details Follow Up: 1 Year, Reason: Progress Notes * Examination Category Sub-Category Detail Notes General Examination GENERAL APPEARANCE: in no ac [place] distress HEAD: normocephalic EYES: sclera non-icteric NECK/THYROID: no lymphadenopathy HEART: S1, S2 normal, no mu rmurs CHEST: normal shape and exp ansion LUNGS: clear to auscultatio n bilaterally ABDOMEN: soft, nontender, non distended, bowel sounds present, no organomegaly SKIN: anicteric EXTREMITIES: no clubbing, cyanosi s, or edema PSYCH: cognitive function i ntact ORAL CAVITY: mucosa moist
--- OUTSIDE RECORDS SUMMARY | 2024-07-01 11:41 | XMS_ITS | Patient Health Record ---
Author Organization [facility] Address [address] [place] [address] Care Team Providers Care Ceramic Coater Machine Name Role Phone Loc BRIAN, Mayra Primary Care Provider Lenard Perez Jr Unavailable [phone] ALLERGIES No Known Allergies REASON FOR REFERRAL No Information MEDICATIONS Medication SIG (Take, Route, Frequency, Duration) Notes Start Date End Date Status Multi Vitamin - 1 tablet Orally Once a day for 30 day(s) Active amLODIPine Besylate 10 MG Oral for 90 Active Allopurinol 300 MG Oral for 90 Active Losartan Potassium 50 MG Oral for 90 Active Fish Oil 1000 MG 1 capsule Orally Thr ee times a day for 30 day(s) Active Omeprazole 40 MG Oral for 90 A ctive IMMUNIZATIONS Vaccine Route Administration Date Status Comme nts Influenza Unknown 04/10/2023 Administered SOCIAL HISTORY Tobacco Use: Social History Observation [...] Notes Problem Esophageal stricture (K22.2) Active confirmed 88794409 Problem 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) Active confirmed 086633073 Problem Colon cancer screening (Z12.11) Active confirmed 172211303 VITAL SIGNS Temperature 98.6 degrees Fahrenheit 02/13/2024 Blood pressure diastolic 00 mm Hg 02/13/2024 Height 5 ft 4.5 in in 02/13/2024 Blood pressure systolic 000 mm Hg 02/13/2024 Weight 175 lbs 02/13/2024 BMI 29.57 kg/m2 02/13/2024 Encounters Encounter Location Date Provider Diagnosis [facility] [address] [place] [address] 02/13/2024 Lenard Borrego Jr Esophageal stricture K22.2 ; 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 K22.70 and Colon cancer screening Z12.11 ASSESSMENTS Encounter Date Diagnosis Assessment Notes Treatment Notes Treatment Clinical Notes 02/13/2024 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 (ICD-10 - K22.70) 02/13/2024 Esophageal stricture (ICD-10 - K22.2) Gastroesophageal reflux disease material was printed 02/13/2024 Colon cancer screening (ICD-10 - Z12.11) PLAN OF TREATMENT No Information Insurance Providers Payer Name Payer Address Payer Phone Subscriber Number Group Number Insured Name Patient Relationship to Insured Coverage Start Date Coverage End Date MEDICARE OF [place] [address] [place] [address] [id number] [place] Self - patient is the insured [facility] [address] [place] [phone] [id number] [place] Self - patient is the insured MEDICAL (GENERAL) HISTORY Medical History History ICD Code Gastroesophageal reflux disease Hypertension Hyperlipidemia Doubt Hiatal hernia Dysphagia with esophageal st ricture, EGD 02/12/24, Ochoa's esophagus, biopsies pending Colonoscopy 06/06, diverticulosis, ten-ye ar followup, optional based on age. Surgical History Surgery Date(Month/Year)
== END 2024-07-01 11:06 | disposition home or self-care (01) ==
PROVIDERS: PCP Internal Medicine; Visit Provider Internal Medicine
DX: E78.2 Mixed hyperlipidemia (principal); R73.01 Impaired fasting glucose; E79.0 Hyperuricemia without signs of inflammatory arthritis and tophaceous disease; I10 Essential (primary) hypertension

== ENCOUNTER → 2024-07-01 10:28 | Outpatient (BNVA) | payer MEDICARE, OTHER, SELFPAY | PROVIDERS: PCP Internal Medicine; Visit Provider Internal Medicine | DX: E78.2 Mixed hyperlipidemia (principal); R73.01 Impaired fasting glucose; E78.9 Disorder of lipoprotein metabolism, unspecified; I10 Essential (primary) hypertension | CPT/HCPCS: 99212 ==

== ENCOUNTER 2024-07-10 10:42 | Outpatient (REF) | payer MEDICARE, OTHER, SELFPAY ==
--- OUTSIDE RECORDS SUMMARY | 2024-07-10 11:53 | XMS_ITS ---
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) Active confirmed 226411661 Problem Colon cancer screening (Z12.11) Active confirmed 848969472 VITAL SIGNS BMI 29.57 kg/m2 02/13/2024 Blood pressure systolic 000 mm Hg 02/13/20 24 Blood pressure diastolic 00 mm Hg 024 Height 5 ft 4.5 in in 02/13/2024 Temperature 98.6 degrees Fahrenheit 02/13/20 24 Weight 175 lbs 02/13/2024 Encounters Encounter Location Date Provider Diagnosis [facility] [address] [place] [address] 02/13/2024 Lenard Borrego Jr Esophageal stricture K22.2 [...] General Examination GENERAL APPEARANCE: in no ac [place] distress HEAD: normocephalic EYES: sclera non-icteric NECK/THYROID: no lymphadenopathy HEART: S1, S2 normal, no mu rmurs CHEST: normal shape and exp ansion LUNGS: clear to auscultatio n bilaterally ABDOMEN: soft, nontender, non distended, bowel sounds present, no organomegaly SKIN: anicteric EXTREMITIES: no clubbing, cyanosi s, or edema PSYCH: cognitive function i ntact ORAL CAVITY: mucosa moist
--- OUTSIDE RECORDS SUMMARY | 2024-07-10 11:53 | XMS_ITS | Patient Health Record ---
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) Active confirmed 173477732 Problem Colon cancer screening (Z12.11) Active confirmed 468155173 VITAL SIGNS Temperature 98.6 degrees Fahrenheit 02/13/2024 Blood pressure diastolic 00 mm Hg 02/13/2024 Height 5 ft 4.5 in in 02/13/2024 Blood pressure systolic 000 mm Hg 02/13/2024 Weight 175 lbs 02/13/2024 BMI 29.57 kg/m2 02/13/2024 Encounters Encounter Location Date Provider Diagnosis [facility] [address] [place] [address] 02/13/2024 Lenard Borrego Jr Esophageal stricture K22.2 [...] End Date MEDICARE OF [place] [address] [place] [address] [phone] [id number] [place] Self - patient is the insured [facility] [address] [place] [address] [phone] [id number] [place] Self - patient is the insured MEDICAL (GENERAL) HISTORY Medical History History ICD Code Gastroesophageal reflux disease Hypertension Hyperlipidemia Doubt Hiatal hernia Dysphagia with esophageal st ricture, EGD 02/12/24, Ochoa's esophagus, biopsies pending Colonoscopy 06/06, diverticulosis, ten-ye ar followup, optional based on age. Surgical History Surgery Date(Month/Year)
[2024-07-10 13:20] LABS: MANUAL DIFF FLAG NO
[2024-07-10 13:28] LABS: Basophils Percent Auto 0.7 % (0-2); Eosinophils Absolute Auto 0.1 X10*3/uL (0.0-0.4); Eosinophils Percent Auto 1.8 % (0-4); Hematocrit 37.4 % (42.0-52.0); Hemoglobin 13.6 g/dl (14.0-18.0); Imm Gran Abs Auto 0.01 X10*3/uL (0.00-0.03); Imm Gran Pct Auto 0.2 % (0.0-0.4); Lymphocytes Absolute Auto 2.3 X10*3/uL (1.2-4.9); Lymphocytes Percent Auto 52.7 % (20-40); Mean Corpuscular HGB Conc 36.4 g/dl (31.0-36.0); Mean Corpuscular Hemoglobin 33.9 pg (27.0-33.0); Mean Corpuscular Volume 93.3 fL (80.0-98.0); Mean Platelet Volume 9.6 fL (9.4-12.4); Monocytes Absolute Auto 0.3 X10*3/uL (0.1-1.2); Monocytes Percent Auto 6.6 % (2-11); Neutrophils Absolute Auto 1.7 x10*3/uL (2.0-8.3); Platelet Count 188 X10*3/uL (160-400); Red Blood Count 4.01 X10*6/uL (4.60-5.80); Red Cell Distribution Width 12.4 % (11.0-16.0); White Blood Count 4.4 X10*3/uL (4.8-10.8)
[2024-07-10 13:40] LABS: Alanine Aminotransferase 47 U/L (0-40); Anion Gap 12 (12-20); Aspartate Amino Transferase 53 U/L (5-37); Blood Urea Nitrogen 9 mg/dL (9-16); Carbon Dioxide 26 mmol/L (22-29); Chloride 104 mmol/L (96-108); Cholesterol 146 mg/dL (<200); Estimated Glomerular Filt Rate > 60; Glucose Fasting 97 mg/dL (60-99); HDL Cholesterol 57 mg/dL (>40); LDL Cholesterol Calculated 52 mg/dL (<100); Sodium 138 mmol/L (135-145); Triglycerides 185 mg/dL (<150); Uric Acid 4.7 mg/dL (3.4-7.0)
[2024-07-10 13:44] LABS: Estimated Average Glucose 111 mg/dL; Hemoglobin A1c % 5.5 % (<6.0); Total Hemoglobin (HGBA1C) 3573.9843 umol/L
[2024-07-10 13:55] LABS: Vitamin D 25-OH Total 145.5 ng/mL (>30)
[2024-07-10 13:58] LABS: PSA,Total (Free>4and<10) 0.84 ng/mL (0.00-4.00)
== END 2024-07-10 10:43 | disposition home or self-care (01) ==
LOC: HO.HMGCLDS 10:42
PROVIDERS: PCP Internal Medicine; Visit Provider Internal Medicine
DX: E78.2 Mixed hyperlipidemia (principal); R73.01 Impaired fasting glucose; I10 Essential (primary) hypertension; D75.89 Other specified diseases of blood and blood-forming organs; E79.0 Hyperuricemia without signs of inflammatory arthritis and tophaceous disease; Z12.5 Encounter for screening for malignant neoplasm of prostate
CPT/HCPCS: 36415; 80048; 80061; 82306; 83036; 84153; 84450; 84460; 84550; 85025

== ENCOUNTER 2024-11-20 10:32 | Outpatient (REF) | payer MEDICARE, OTHER, SELFPAY ==
--- OUTSIDE RECORDS SUMMARY | 2024-11-20 11:16 | XMS_ITS | Patient Health Record ---
Author Organization [facility] Address [address] [place] [address] Care Team Providers Care Caramel Candy Maker Helper Name Role Phone Loc BRIAN, Mayra Primary Care Provider Lenard Perez Jr Unavailable Allergies No Known Allergies Reason For Referral No Information Medications Medication SIG (Take, Route, Frequency, Duration) Notes [...] 40 MG Oral for 90 A ctive Immunizations Vaccine Route Administration Date Status Comme nts Influenza Unknown 04/10/2023 Administered Social History Tobacco Use: Social History Observation Description Date Details (start date - stop date) Former Smoker NA - NA Tobacco Use/Smoking Question Answer Notes Patient is [...] Never (0 point) Points 5 Interpretation Positive Problems Problem Type SNOMED Code ICD Code Onset Dates Problem Status W/U Status Risk Notes Problem [id number] Colon cancer screening (Z12.11) Active confirmed Problem 266517086 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) Active confirmed Problem 47478196 Esophageal stricture (K22.2) Active confirmed Vital Signs Temperature 98.6 degrees Fahrenheit 02/13/2024 Blood pressure diastolic 00 mm Hg 02/13/2024 Height 5 ft 4.5 in in 02/13/2024 Blood pressure systolic 000 mm Hg 02/13/2024 Weight 175 lbs 02/13/2024 BMI 29.57 kg/m2 02/13/2024 Encounters Encounter Location Date Provider Diagnosis [facility] [address] [place] [address] 02/13/2024 Lenard Borrego Jr Esophageal stricture K22.2 ; 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 K22.70 and Colon cancer screening Z12.11 Assessments Encounter Date Diagnosis (ICD Code) Assessment Notes Treatment Notes Treatment Clinical Notes Section Notes 02/13/2024 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 (ICD-10 - K22.70) Currently, Louis appears to be doing well. We'll await his biopsy results from his endoscopy. He can followup in one year for continued care of his GI problems. He is up-to-date on colorectal cancer screening in we have not recommended repeat colonoscopy at this time based on the discussion above and his previous evaluation. He should continue a proton pump inhibitor and monitor for any changes in dysphagia or reflux. Followup in one year. 02/13/2024 Esophageal stricture (ICD-10 - K22.2) Gastroesophageal reflux disease material was printed Currently, Louis appears to be doing well. We'll await his biopsy results from his endoscopy. He can followup in one year for continued care of his GI problems. He is up-to-date on colorectal cancer screening in we have not recommended repeat colonoscopy at this time based on the discussion above and his previous evaluation. He should continue a proton pump inhibitor and monitor for any changes in dysphagia or reflux. Followup in one year. 02/13/2024 Colon cancer screening (ICD-10 - Z12.11) Currently, Louis appears to be doing well. We'll await his biopsy results from his endoscopy. He can followup in one year for continued care of his GI problems. He is up-to-date on colorectal cancer screening in we have not recommended repeat colonoscopy at this time based on the discussion above and his previous evaluation. He should continue a proton pump inhibitor and monitor for any changes in dysphagia or reflux. Followup in one year. Plan Of Treatment No Information Insurance Providers Payer Name Payer Address Payer Phone Subscriber Number Group Number Insured Name Patient Relationship to Insured Coverage Start Date Coverage End Date MEDICARE OF [place] [address] [place] [id number] [place] Self - patient is the insured [facility] [address] [place] [phone] [id number] [place] Self - patient is the insured Medical (General) History Medical History History ICD Code Gastroesophageal reflux disease Hypertension Hyperlipidemia Doubt Hiatal hernia Dysphagia with esophageal st ricture, EGD 02/12/24, Ochoa's esophagus, biopsies pending Colonoscopy 06/06, diverticulosis, ten-ye ar followup, optional based on age. Surgical History Surgery Date(Month/Year)
[2024-11-20 13:10] LABS: MANUAL DIFF FLAG NO
[2024-11-20 13:26] LABS: Hematocrit 38.3 % (42.0-52.0); Hemoglobin 14.0 g/dl (14.0-18.0); Imm Gran Abs Auto 0.01 X10*3/uL (0.00-0.03); Imm Gran Pct Auto 0.2 % (0.0-0.4); Lymphocytes Absolute Auto 2.5 X10*3/uL (1.2-4.9); Mean Corpuscular HGB Conc 36.6 g/dl (31.0-36.0); Mean Corpuscular Hemoglobin 34.1 pg (27.0-33.0); Mean Corpuscular Volume 93.2 fL (80.0-98.0); NRBC Abs Auto 0.000 X10*3/uL (0.0-0.012); NRBC Pct Auto 0.0 /100WBC (0.0-0.2); Platelet Count 174 X10*3/uL (160-400); Red Blood Count 4.11 X10*6/uL (4.60-5.80); White Blood Count 5.0 X10*3/uL (4.8-10.8)
[2024-11-20 13:37] LABS: Hemoglobin A1C 140.0026 umol/L; Total Hemoglobin (HGBA1C) 3672.2455 umol/L
[2024-11-20 13:57] LABS: Alanine Aminotransferase 35 U/L (0-40); Albumin Level 4.3 g/dL (3.5-5.0); Alkaline Phosphatase 49 U/L (39-117); Anion Gap 12 (12-20); Aspartate Amino Transferase 40 U/L (5-37); Blood Urea Nitrogen 12 mg/dL (9-16); Calcium 9.6 mg/dL (8.4-10.2); Carbon Dioxide 25 mmol/L (22-29); Chloride 102 mmol/L (96-108); Cholesterol 140 mg/dL (<200); Estimated Glomerular Filt Rate > 60; HDL Cholesterol 48 mg/dL (>40); Iron 149 mcg/dL (45-160); Percent Iron Saturation 55 % (15-50); Potassium 4.1 mmol/L (3.3-5.1); Sodium 135 mmol/L (135-145); Total Iron Binding Capacity 270 mcg/dL (228-428); Total Protein 7.5 g/dL (6.5-8.0); Triglycerides 195 mg/dL (<150); Unsaturated Iron Binding 121 ug/dL; Uric Acid 5.1 mg/dL (3.4-7.0)
[2024-11-20 14:00] LABS: Ferritin 411 ng/mL (20-250)
[2024-11-20 14:12] LABS: Folate 11.4 ng/mL (> or = 4.0); Vitamin B12 693 pg/mL (200-900)
== END 2024-11-20 10:33 | disposition home or self-care (01) ==
LOC: HO.HMGCLDS 10:32
PROVIDERS: PCP Internal Medicine; Visit Provider Internal Medicine
DX: I10 Essential (primary) hypertension (principal); E78.2 Mixed hyperlipidemia; E79.0 Hyperuricemia without signs of inflammatory arthritis and tophaceous disease; D75.89 Other specified diseases of blood and blood-forming organs; R73.01 Impaired fasting glucose
CPT/HCPCS: 36415; 80053; 80061; 82306; 82607; 82728; 82746; 83036; 83540; 84550; 85025

== ENCOUNTER 2024-11-25 11:22 | Outpatient (AMB) | payer MEDICARE, OTHER, SELFPAY ==
[2024-11-25 11:30] VITALS: BP 116/54; PULSE 75; RESP 16; TEMP 36.9; O2SAT 95; BMI 32.3
--- NOTE | 2024-11-25 11:30 | A.OFFPC_ITS ---
Vital Signs 11/25/24 11:30 Height 5 ft 4 in Weight 188 lb BMI 32.3 BP 116/54 L Blood Pressure Location Rt brachial Position Sitting Respiration 16 Pulse 75 Pulse Source Pulse Oximeter Temp 98.5 F Temp Source Oral Pulse Oximetry (%) 95 Oxygen Delivery Method Room Air Intake Visit Reasons: 5 months f/up Intake Note: Pt is here today for his 5mo. f/u Allergies No Known Allergies (No Known Allergies*) Allergy (Verified 11/30/24 20:40) Medication List - Last Reconciled 11/30/24 by Mayra Monterroso MD allopurinol 300 mg PO DAILY amlodipine 10 mg PO DAILY atorvastatin 10 mg PO Q2D 3 months clobetasol 0.05% 1 appl topical BEDTIME PRN 10 days losartan 75 mg (1.5 x 50 mg) PO DAILY omega-3 acid ethyl esters (Lovaza) 2 caps PO BID 90 days omeprazole 40 mg PO DAILY Tobacco use date assessed: 11/25/24 Fall risk assessment: No Falls in past year Last assessed Fall Risk: 11/25/24 Dental Screening Dental Screen Date: 11/25/24 Did you have a dental visit in the last 12 months?: No Did you have a dental problem in the last 6 months where you did not have access to dental care?: No Was dental information given to patient?: Patient declined HPI 5 months f/up HPI Details 79 year-old male with history of gout, h ypertension, mixed dyslipidemia, psoriasis, here today for his follow-up. He is accompanied today by his who states that patient has been very forgetful at times, and has been drinking alcoholic beverage on a regular basis, sometimes having 3 alcoholic drinks 3 to 4 times a week. He had recent fasting labs done which showed [facility] Medical History (Updated 07/01/24 @ 11:03 by Mayra Monterroso MD) Skin lesion of left leg Elevated transaminase level Sliding hiatal hernia Difficulty swallowing solids Mixed dyslipidemia Dysphagia Elevated liver enzymes Laceration of head Tinnitus of left ear History of stress test Hyperuricemia Impaired fasting glucose Seasonal allergic rhinitis Psoriasis MALU (obstructive sleep apnea) HTN (hypertension) Surgical History No pertinent past surgical history Family History Father Cardiovascular accident Mother Stroke Social History Housing: House Alcohol intake: current Patient Tobacco Use Status: Former Tobacco user Tobacco use type: Cigarette Years Smoked: 8 years e-Cigarette/Vaping Use: Never Used Current occupational status: retired Cognitive needs: No Hearing needs: No Vision needs: No Questionnaire Thrive Questionnaire Date Thrive assessed: 06/24/24 I am a: Patient What is your living situation today?: I have a steady place to live Within the past 12 months, did the food you bought not last and you didn't have the money to get more?: Never true Within the past 12 months, did you worry whether your food would run out before you got money to buy more?: Never true Do you have trouble paying for medicines?: No Do you have trouble getting transportation to medical appointments?: No Do you have trouble paying your heating and electricity bill?: No Do you have trouble taking care of your child, family member or friend?: No Do you have trouble with day-to-day activities such as bathing, preparing meals, shopping, managing finances, etc.?: No Are you currently unemployed and looking for a job?: Yes Are you interested in more education?: No Please select the resources that you would like help with: None Currently or been in a relationship where the following occur: No concerns reported THRIVE Score: 0 AUDIT C Alcohol Use Questionnaire (AUDIT-C) 1. How often do you have a drink containing alcohol?: 2-3 times a week 2. How many drinks containing alcohol do you have on a typical day when you are drinking?: 3 or 4 3. How often do you have six or more drinks on one occasion?: Never Total Score: 4 Score Reviewed/Action Taken: Yes (Alcohol at risk education provided on this vi sit) STEVENSON-7 AMB Questionnaire STEVENSON-7 Date STEVENSON - 7 assessed: 08/30/23 Feeling nervous, anxious, or on edge: 0 = Not at all Not being able to stop or control worryin = Not at all Worrying too much about different things: 0 = Not at all Trouble relaxin = Not at all Being so restless that it is hard to sit still: 0 = Not at all Becoming easily annoyed or irritable: 0 = Not at all Feeling afraid as if something awful might happen: 0 = Not at all Total STEVENSON-7 score (0-4 normal; 5-9 mild; 10-14 moderate; 15-21 severe): 0 Source: Developed by Drs. Michael Wilkinson, Leatha Faustin, Dusty Chaudhry and colleagues, with an educational debbie from [employer]. Review of Systems Const Reports no additional complaints Eyes Denies change in vision ENT Details: Has full dentures Reports no additional complaints Card Denies chest pain at rest, Denies chest pain with activity, Denies rapid heart rate, Denies irregular heart rhythm, Denies lightheadedness and Denies dyspnea Resp Denies cough and Denies dyspnea GI Denies abdominal pain, Denies hematochezia, Denies change in bowel habits and Denies heartburn Reports no additional complaints Musc Reports as per HPI Skin/Breast Denies rash Neuro Reports no additional complaints Psych Reports no additional complaints Endo Reports no additional complaints Jimi/Lymph Reports no additional complaints Aller/Immun Reports no additional complaints Physical exam (Primary Care) Vital Signs: Last Vital Signs Temp 98.5 F 11/25/24 11:30 Pulse 75 11/25/24 11:30 Resp 16 11/25/24 11:30 BP 116/54 L 11/25/24 11:30 Pulse Ox 95 11/25/24 11:30 Oxygen Delivery Method Room Air 11/25/24 11:30 BMI result Body Mass Index 32.3 Tobacco/Smoking Status: Tobacco use Status Tobacco use date assessed 11/25/24 11/25/24 11:31 Patient Tobacco Use Status Former Tobacco user 11/25/24 11:31 Tobacco use type Cigarette 11/25/24 11:31 e-Cigarette/Vaping Use Never Used 11/25/24 11:31 Thrive Assessment: Date of Thrive Assessment Date Thrive assessed 06/24/24 11/25/24 11:31 Currently or been in a relationship where the following occur: No concerns reported Const General: no acute distress, alert and awake Nutritional Appearance: obese Orientation/consciousness: patient oriented x3 HENMT Face and sinus: Yes face symmetric Mouth: moist mucous membranes Eyes General: appearance normal, both eyes and all related structures Neck Neck: Yes full ROM, Yes no lymphadenopathy and Yes supple Resp Effort & Inspection: normal respiratory effort and able to speak in complete sentences Auscultation: clear to auscultation bilaterally Cardio Rate: regular rate Rhythm: regular rhythm Heart sounds: S1 normal heart sound present and S2 normal heart sound present GI Inspection: Yes normal to inspection Palpation (GI): Soft to palpation, nontender, no guarding and no masses Auscultation: normal bowel sounds Neuro General: patient oriented x3, gait normal, tone normal, moves all extremities, Normal light touch and pain sensation and no focal motor deficits Gait exam (Neuro): Normal gait present Extrem General: Yes full ROM, Yes no joint enlargement, Yes no clubbing, cyanosis or edema and Yes normal gait Results Reviewed Results Reviewed: Name: Osorio Boykin Age/Sex: 79/M : 1945 Unit#: [id number] Attend Dr: Mayra Monterroso MD Re11/20/24 Status: DEP REF Location: [facility] Disch: SPEC : [id number] KAROL: 11/20/24-1037 STATUS: COMP REQ : [id number] RECD: 11/20/24-[address]: Mayra Monterroso MD COMP: 11/20/24-1036 ENTERED: 11/20/24-[address] [facility] [address]: ORDERED: CBC Auto Diff Test Result Flag Reference WBC 5.0 4.8-10.8 X10*3/uL RBC 4.11 L 4.60-5.80 X10*6/uL HGB 14.0 14.0-18.0 g/dl HCT 38.3 L 42.0-52.0 % MCV 93.2 80.0-98.0 fL MCH 34.1 H 27.0-33.0 pg MCHC 36.6 H 31.0-36.0 g/dl RDW 12.7 11.0-16.0 % PLT 174 160-400 X10*3/uL MPV 10.0 9.4-12.4 fL Neut Pct Auto 39.0 L 45-73 % ImGran Pct Auto 0.2 0.0-0.4 % Lymp Pct Auto 50.8 H 20-40 % [place] Pct Auto 8.0 2-11 % Eos Pct Auto 1.6 0-4 % Baso Pct Auto 0.4 0-2 % NRBC Pct Auto 0.0 0.0-0.2 /100WBC ANC Neut Abs # 1.9 L 2.0-8.3 x10*3/uL ImGran Abs Auto 0.01 0.00-0.03 X10*3/uL Lymph Abs Auto 2.5 1.2-4.9 X10*3/uL [place] Abs Auto 0.4 0.1-1.2 X10*3/uL Eos Abs Auto 0.1 0.0-0.4 X10*3/uL Baso Abs Auto 0.0 0.0-0.2 X10*3/uL NRBC Abs Auto 0.000 0.0-0.012 X10*3/uL Name: Osorio Boykin Age/Sex: 79/M : 1945 Unit#: [id number] Attend Dr: Mayra Monterroso MD Re11/20/24 Status: DEP REF Location: [facility] Disch: SPEC : [id number] KAROL: 11/20/24-1038 STATUS: COMP REQ : [id number] RECD: 11/20/24-[address]: Mayra Monterroso MD COMP: 11/20/24-1400 ENTERED: 11/20/24-[address]: ORDERED: CMP Fast, Uric, IRON PROF, Ferritin, Lipid Panel, Vitamin D 25-OH Test Result Flag Reference Sodium 135 135-145 mmol/L Potassium 4.1 3.3-5.1 mmol/L CL 102 96-108 mmol/L CO2 25 22-29 mmol/L Gap 12 12-20 BUN 12 9-16 mg/dL Creat 0.98 0.5-1.4 mg/dL eGFR > 60 Chronic Kidney Disease: Estimated GFR < 60 mL/min/1.73m2 Severe Kidney Disease: Estimated GFR < 15 mL/min/1.73m2 FBS 113 H 60-99 mg/dL A fasting glucose from 100-125 mg/dl is considered impaired (pre-diabetes). Uric Acid 5.1 3.4-7.0 mg/dL CA 9.6 # 8.4-10.2 mg/dL Iron 149 45-160 mcg/dL TIBC 270 228-428 mcg/dL Saturation 55 H 15-50 % UIBC 121 ug/dL Ferritin 411 H 20-250 ng/mL Total Bili 1.0 0.0-1.0 mg/dL AST (GOT) 40 H 5-37 U/L ALT (GPT) 35 0-40 U/L Protein, Total 7.5 6.5-8.0 g/dL Alb 4.3 3.5-5.0 g/dL Triglyceride 195 H <150 mg/dL Desirable Triglyceride: less than 150 mg/dL Borderline High Triglyceride 150-199 mg/dL High Triglyceride: 200-499 mg/dL Very High Triglyceride: greater than or equal to 5OO mg/dL Cholesterol 140 <200 mg/dL Desirable Cholesterol: less than 200 mg/dL Borderline High Cholesterol: 200-239 mg/dL High Cholesterol: greater than 239 mg/dL LDL Calculated 53 <100 mg/dL Desirable LDL: less than 100 mg/dL Near Optimal/Above Optimal LDL: 110-129 mg/dL Borderline High LDL: 130-159 mg/dL High LDL: 160-189 mg/dL Very High LDL: greater than or equal to 190 mg/dL HDL 48 >40 mg/dL Desirable HDL: greater than 40 mg/dL Note: This HDL assay may give artificially low results in patients with liver disease. Alk Phos 49 39-117 U/L Vitamin D 25-OH 60.1 >30 ng/mL Health Based Reference Values* < 20 ng/mL Deficient 20-30 ng/mL Insufficient > 30 ng/mL Sufficient Laboratory Tests 11/20/24 10:38 Estimat Average Glucose 114 Hemoglobin A1c % 5.6 Coding Level of Care Code Est Pt Level 4 (40965) Diagnoses Essential hypertension I10 Hypertension type: essential hypertension Impaired fasting glucose R73.01 Hyperuricemia E79.0 Mixed dyslipidemia E78.2 Alcohol use disorder F10.90 Memory changes R41.3 Assessment & Plan Assessment & Plan (1) HTN (hypertension): Code(s): I10 - Essential (primary) hypertension Category: Medical Qualifiers: Hypertension type: essential hypertension Qualified Code(s): I10 - Essential (primary) hypertension Plan: Blood pressure stable and controlled on losartan 75 mg taken once a day together with amlodipine 10 mg daily. Latest fasting labs showed electrolytes and renal function are within normal limits. (2) Impaired fasting glucose: Code(s): R73.01 - Impaired fasting glucose Category: Medical Plan: Your previous fasting blood sugars were elevated above 100 mg/dL. Impaired glucose metabolism increases the risk for developing diabetes mellitus type 2, as well as heart attack and stroke later on. Lifestyle changes that promotes weight loss, healthy eating habits, and regular exercise are important, and can prevent the progression to diabetes (3) Hyperuricemia: Code(s): E79.0 - Hyperuricemia without signs of inflammatory arthritis and tophaceous disease Category: Medical Plan: Serum uric acid level on latest labs done are within normal limit (4) Mixed dyslipidemia: Code(s): E78.2 - Mixed hyperlipidemia Category: Medical Plan: Reviewed recent fasting lipid profile with patient with levels are within normal limits except for elevated triglycerides. . Continue with taking Lovaza 2 capsules twice a day and atorvastatin 10 mg every other day , in addition to adherence to low-cholesterol diet and regular exercise, at least 30 minutes 3 to 4 times a week. Advised patient to make healthy food choices, eat more fruits, vegetables, whole grains, wild caught fish and low-fat dairy. Limit amount of meat and fried or fatty food products, as well as processed foods and fast foods. Follow-up scheduled with repeat fasting lipid panel in 4 months. (5) Alcohol use disorder: Code(s): F10.90 - Alcohol use, unspecified, uncomplicated Plan: Alcohol at risk education given to both patient and who accompanies him today. Patient advised to slowly cut back on his drinking (6) Memory changes: Code(s): R41.3 - Other amnesia Plan: Scored 30/30 on Mini-mental status done today. Reinforced importance of adhering to healthy eating habits, cutting back on lot of processed foods, and saturated fats, stressed importance of getting at least 30 minutes of moderate intensity exercise 3 to 4 times a week. And avoidance of alcohol Orders: Orders Uric Acid 04/11/25 E78.2 - Mixed hyperlipidemia, E79.0 - Hyperuricemia without signs of inflammatory arthritis and tophaceous disease, I10 - Essential (primary ) hypertension, R73.01 - Impaired fasting glucose Comprehensive [place]. Panel Fast 04/11/25 E78.2 - Mixed hyperlipidemia, E79.0 - Hyperuricemia without signs of inflammatory arthritis and tophaceous disease, I10 - Essential (primary) hypertension, R73.01 - Impaired fasting glucose Lipid Panel 04/11/25 E78.2 - Mixed hyperlipidemia, E79.0 - Hyperuricemia without signs of inflammatory arthritis and tophaceous disease, I10 - Essential (primary) hypertension, R73.01 - Impaired fasting glucose Hemoglobin A1c 04/11/25 E78.2 - Mixed hyperlipidemia, E79.0 - Hyperuricemia without signs of inflammatory arthritis and tophaceous disease, I10 - Essential (primary) hypertension, R73.01 - Impaired fasting glucose
--- OUTSIDE RECORDS SUMMARY | 2024-11-25 12:30 | XMS_ITS | Patient Health Record ---
Author Organization [facility] Address [address] [place] [address] Care Team Providers Care Plan Rep Name Role Phone Loc BRIAN, Mayra Primary Care Provider Lenard Perez Jr Unavailable [phone] Allergies No Known Allergies Reason For Referral [...] Problem Status W/U Status Risk Notes Problem 890587470 Colon cancer screening (Z12.11) Active confirmed Problem 300147570 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) Active confirmed Problem 38435314 Esophageal stricture (K22.2) Active confirmed Vital Signs Temperature 98.6 degrees Fahrenheit 02/13/2024 Blood pressure diastolic 00 mm Hg 02/13/2024 Height 5 ft 4.5 in in 02/13/2024 Blood pressure systolic 000 mm Hg 02/13/2024 Weight 175 lbs 02/13/2024 BMI 29.57 kg/m2 02/13/2024 Encounters Encounter Location Date Provider Diagnosis [facility] [address] [place] [address] 02/13/2024 Lenard Borrego Jr Esophageal stricture K22.2 [...] End Date MEDICARE OF [place] [address] [place] [id number] [phone] [id number] [place] Self - patient is the insured [facility] [address] [place] [phone] [id number] [place] Self - patient is the insured Medical (General) History Medical History History ICD Code Gastroesophageal reflux disease Hypertension Hyperlipidemia Doubt Hiatal hernia Dysphagia with esophageal st ricture, EGD 02/12/24, Ochoa's esophagus, biopsies pending Colonoscopy 06/06, diverticulosis, ten-ye ar followup, optional based on age. Surgical History Surgery Date(Month/Year)
== END 2024-11-25 12:36 | disposition home or self-care (01) ==
LOC: HO.HMCC 11:27
PROVIDERS: PCP Internal Medicine; Visit Provider Internal Medicine
DX: I10 Essential (primary) hypertension (principal); R73.01 Impaired fasting glucose; E79.0 Hyperuricemia without signs of inflammatory arthritis and tophaceous disease; E78.2 Mixed hyperlipidemia; F10.90 Alcohol use, unspecified, uncomplicated; R41.3 Other amnesia

== ENCOUNTER → 2024-11-25 11:22 | Outpatient (BNVA) | payer MEDICARE, OTHER, SELFPAY | PROVIDERS: PCP Internal Medicine; Visit Provider Internal Medicine | DX: I10 Essential (primary) hypertension (principal); R73.01 Impaired fasting glucose; E79.0 Hyperuricemia without signs of inflammatory arthritis and tophaceous disease; E78.2 Mixed hyperlipidemia; R41.3 Other amnesia; F10.90 Alcohol use, unspecified, uncomplicated | CPT/HCPCS: 99212 ==

== ENCOUNTER 2025-04-10 10:13 | Outpatient (REF) | payer MEDICARE, OTHER, SELFPAY ==
--- OUTSIDE RECORDS SUMMARY | 2025-04-10 10:51 | XMS_ITS | Clinical Summary ---
Author Organization [facility] Address [address] [place] [phone] Phone Care Team Providers Care Quality Assurance Qa Lab Analyst Name Role Phone Pcp, Not Required Primary Care Provider Unavaila ble Allergies No known active allergies Medications allopurinol (ZYLOPRIM) 300 MG tablet 10/05/2021 Active amLODIPine (NORVASC) 10 MG tablet Take 10 mg by mouth daily. Active ergocalciferol (DRISDOL) 50,000 unit capsule Take 2,000 Units by mouth. Active fenofibrate micronized (LOFIBRA) 134 mg capsule Take 132 mg by mouth. Active folic acid (FOLVITE) 1 MG tablet 10/05/2021 Active losartan (COZAAR) 50 MG tablet 10/05/2021 Active fish oil-omega-3 fatty acids 300-1,000 mg capsule Take 1,200 mg by mouth daily. Active Social History Tobacco Use Types Packs/Day Years Used Date Smoking Tobacco: Former Smokeless Tobacco: Never Alcohol Use Standard Drinks/Week Comments Not Currently 0 (1 standard drink = 0.6 oz pur e alcohol) Education Answer Date Recorded Are you interested in more education? Not on ada e 09/16/2022 Are you concerned about learning? Not on file 09/16/2022 No 09/16/2022 No 09/16/2022 Digital Access Answer Date Recorded No 10/15/2022 No 10/15/2022 No 10/15/2022 Reliable internet access at home? Not on file 10/15/2022 Device with a working camera? Not on file Sex and Gender Information Value Date Recorded Sex Assigned at Not on file Legal Sex Male 4:19 PM EDT Gender Identity Not on file Sexual Orientation Not on file Last Filed Vital Signs Vital Sign Reading Time Taken Comments Blood Pressure 163/79 11/20/2021 8:12 PM EDT Pulse 79 11/20/2021 8:12 PM EDT Temperature 36.4 C (97.5 F) 11/20/2021 8:12 PM EDT Respiratory Rate 16 11/20/2021 8:12 PM EDT Oxygen Saturation 99% 11/20/2021 8:12 PM EDT Inhaled Oxygen Concentration - - Weight 63 kg (139 lb) 11/20/2021 4:53 PM EDT Height 163.8 cm (5' 4.5 ) 11/20/2021 4:53 PM EDT Body Mass Index 23.49 11/20/2021 4:53 PM EDT Plan of Treatment Health Maintenance Due Date Last Done Comments CREATININE LEVEL 1945 LIPID PANEL 1945 POTASSIUM LEVEL 1945 DEPRESSION SCREENING 1959 SMOKING Hx and SMOKELESS TOBACCO SCREENING 09/29/1960 HEPATITIS C SCREENING 09/29/1965 ZOSTER VACCINES (1 of 2) 09/29/1997 PNEUMOCOCCAL VACCINES (50+ years) (2 of 2 - PCV) 11/17/2017 11/17/2016 RSV VACCINE (1 - 1-dose 75+ series) 09/29/2022 Adult Td,Tdap Booster 10/07/2024 10/07/2014 INFLUENZA VACCINE (#1) 2024 , 02/25/2019, 05/04/2018, Additional history exists COVID-19 VACCINE ( season) 2025 08/23/2021, 04/11/2021, 09/02/2020, Additional history exists HEPATITIS A VACCINES Aged Out No long er eligible based on patient's age to complete this topic HIB VACCINES Aged Out No longer eligi ble based on patient's age to complete this topic MENINGOCOCCAL VACCINES (ACWY) Aged Out No longer eligible based on patient's age to complete this topic MENINGOCOCCAL VACCINES (B) Aged Out N o longer eligible based on patient's age to complete this topic Medical Devices Not on file Insurance [facility] [place] [id number] [employer] [place] SUPPLEMENT [employer] [place] [employer] SUPPLEMENT [employer] [place] [employer] SUPPLEMENT [employer] [place] [employer] SUPPLEMENT [employer] [place] SUPPLEMENT [employer] [place] SUPPLEMENT [employer] [place] SUPPLEMENT [employer] [place] SUPPLEMENT [employer] [place] [employer] SUPPLEMENT Care Teams Quality Assurance Qa Lab Analyst Relationship Specialty Start Date End Date Pcp, Not Required [address] [place] [id number] PCP - General 11/20/21 Additional Source Comments The information contained in this document represents components of the legal health record. It is not the complete legal health record.[facility]
--- OUTSIDE RECORDS SUMMARY | 2025-04-10 10:51 | XMS_ITS | Patient Health Record ---
Author Organization [facility] Address [address] [place] [address] Care Team Providers Care Spray Machine Operator Name Role Phone Mayra Monterroso MD Primary Care Provider Lenard Perez Jr Unavailable Allergies No Known Allergies Reason For Referral No Information Medications Medication SIG (Take, Route, Frequency, Duration) Notes Start Date End Date Status Multi Vitamin - Tablet 1 tablet Orally O nce a day; Duration: 30 day(s) Active amLODIPine Besylate 10 MG Tablet Oral; Duration: 90 Active Allopurinol 300 MG Tablet Oral; Duration: 90 Active Losartan Potassium 50 MG Tablet Oral; Duration: 90 Active Fish Oil 1000 MG Capsule 1 capsule Orall y Three times a day; Duration: 30 day(s) Active Omeprazole 40 MG Capsule Delayed Release Oral; Duration: 90 Active Immunizations Vaccine Route Administration Date Status Comme nts Influenza Unknown 04/10/2023 Administered Social History Tobacco Use: Social History Observation Description Date Details (start date - stop date) Former Smoker NA - NA Social History Drugs/Alcohol: Social Info Question Answer Notes Alcohol Screen Did you have a drink containing alcohol in the past year? Yes How often did you have a drink containing alcohol in the past year? 4 or more times a week (4 points) How many drinks did you have on a typical day when you were drinking in the past year? 3 or 4 drinks (1 point) How often did you have 6 or more drinks on one occasion in the past year? Never (0 point) Points 5 Interpretation Positive Tobacco Use: Social Info Question Answer Notes Tobacco Use/Smoking Patient is a former smoker Additional Details Category Social Info Options Details Miscellaneous: Marital status: Occupation: retired Problems Problem Type SNOMED Code ICD Code Onset Dates Problem Status W/U Status Risk Notes Problem Colon cancer screening (975769064) Colon cancer screening (Z12.11) Active confirmed Problem Ochoa's esophagus (622389499) 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) Active confirmed Problem Esophageal stricture (45904098) Esophageal stricture (K22.2) Active confirmed Plan Of Treatment No Information Insurance Providers Payer Name Payer Address Payer Phone Subscriber Number Group Number Insured Name Patient Relationship to Insured Coverage Start Date Coverage End Date MEDICARE OF [place] [address] [place] [address] [id number] [place] Self - patient is the insured [facility] [address] [place] [address] [phone] [id number] [place] Self - patient is the insured Medical (General) History Medical History History ICD Code Gastroesophageal reflux disease Hypertension Hyperlipidemia Doubt Hiatal hernia Dysphagia with esophageal st ricture, EGD 02/12/24, Ochoa's esophagus, biopsies pending Colonoscopy 06/06, diverticulosis, ten-ye ar followup, optional based on age. Surgical History Surgery Date(Month/Year)
[2025-04-10 14:41] LABS: Alanine Aminotransferase 40 U/L (0-40); Albumin Level 4.4 g/dL (3.5-5.0); Alkaline Phosphatase 56 U/L (39-117); Anion Gap 10 (12-20); Aspartate Amino Transferase 42 U/L (5-37); Blood Urea Nitrogen 14 mg/dL (9-16); Calcium 9.2 mg/dL (8.4-10.2); Carbon Dioxide 26 mmol/L (22-29); Chloride 103 mmol/L (96-108); Cholesterol 161 mg/dL (<200); Estimated Glomerular Filt Rate > 60; HDL Cholesterol 53 mg/dL (>40); Potassium 4.0 mmol/L (3.3-5.1); Sodium 135 mmol/L (135-145); Total Protein 7.8 g/dL (6.5-8.0); Triglycerides 163 mg/dL (<150); Uric Acid 5.3 mg/dL (3.4-7.0)
== END 2025-04-10 10:14 | disposition home or self-care (01) ==
LOC: HO.HMGCLDS 10:13
PROVIDERS: PCP Internal Medicine; Visit Provider Internal Medicine
DX: I10 Essential (primary) hypertension (principal); E78.2 Mixed hyperlipidemia; E79.0 Hyperuricemia without signs of inflammatory arthritis and tophaceous disease; R73.01 Impaired fasting glucose
CPT/HCPCS: 36415; 80053; 80061; 83036; 84550

== ENCOUNTER 2025-04-29 12:55 | Outpatient (AMB) | payer MEDICARE, OTHER, SELFPAY ==
[2025-04-29 13:21] VITALS: BP 132/54; PULSE 90; RESP 16; TEMP 36.9; O2SAT 98; BMI 33.5
--- NOTE | 2025-04-29 13:21 | MHC.PC.OV ---
Vital Signs 04/29/25 13:21 Height 5 ft 4 in Weight 195 lb BMI 33.5 BP 132/54 L Blood Pressure Location Lt brachial Position Sitting Respiration 16 Pulse 90 Pulse Source Pulse Oximeter Temp 98.4 F Pulse Oximetry (%) 98 Oxygen Delivery Method Room Air Intake Visit Reasons: annual PE Intake Note: Pt is here today for his PE R D Intern Required: No Allergies No Known Allergies (No Known Allergies*) Allergy (Verified 04/29/25 13:41) Medication List - Last Reconciled 04/29/25 by Mayra Monterroso MD allopurinol 300 mg PO DAILY amlodipine 10 mg PO DAILY atorvastatin 10 mg PO Q2D 3 months clobetasol 0.05% 1 appl topical BEDTIME PRN 10 days losartan 75 mg (1.5 x 50 mg) PO DAILY omega-3 acid ethyl esters (Lovaza) 2 caps PO BID 90 days omeprazole 40 mg PO DAILY Tobacco use date assessed: 04/29/25 Fall risk assessment: No Falls in past year Last assessed Fall Risk: 04/29/25 Dental Screening Dental Screen Date: 04/29/25 Did you have a dental visit in the last 12 months?: No Did you have a dental problem in the last 6 months where you did not have access to dental care?: No Was dental information given to patient?: Patient has dentist HPI annual PE HPI Details The patient is a 79 year old male presenting for his physical exams His blood pressure was noted to be 132/54 on this visit, which is higher than his previous reading of 116. Recent lab results show a Hemoglobin A1c of 5.9%, indicating prediabetes, with a fasting blood glucose of 131 mg/dL and an average glucose of 126 mg/dL. His cholesterol panel showed improvement, with triglycerides decreasing, though still above the target of 150. Total cholesterol is less than 200 and bad cholesterol is less than 100, and liver function is normal. He has gained seven pounds in the last three months, which is attributed to a robust appetite and lack of exercise. Consumes rice on a daily basis He also reports issues with his hearing, describing it as 'bad,' and experiences tinnitus, characterized as ringing. Up-to-date with his screening colonoscopy, due again in 2026. He is up-to-date with all age-appropriate recommended vaccinations [facility] Medical History (Updated 04/29/25 @ 13:50 by Mayra Monterroso MD) Evaluation of hearing impairment Skin lesion of left leg Elevated transaminase level Sliding hiatal hernia Difficulty swallowing solids Mixed dyslipidemia Dysphagia Elevated liver enzymes Laceration of head Tinnitus of left ear History of stress test Hyperuricemia Impaired fasting glucose Seasonal allergic rhinitis Psoriasis MALU (obstructive sleep apnea) HTN (hypertension) Surgical History No pertinent past surgical history Family History Father Cardiovascular accident Mother Stroke Social History Housing: House Alcohol intake: current Patient Tobacco Use Status: Former Tobacco user Tobacco use type: Cigarette Years Smoked: 8 years e-Cigarette/Vaping Use: Never Used Current occupational status: retired Cognitive needs: No Hearing needs: No Vision needs: No Questionnaire PHQ-9 Over the last 2 weeks, how often have you been bothered by any of the following problems? 1. Little interest or pleasure in doing things: not at all 2. Feeling down, depressed, or hopeless: not at all 3. Trouble falling or staying asleep, or sleeping too much: not at all 4. Feeling tired or having little energy: not at all 5. Poor appetite or overeating: not at all 6. Feeling bad about yourself - or that you are a failure or have let yourself or your family down: not at all 7. Trouble concentrating on things, such as reading the newspaper or watching television: not at all 8. Moving or speaking so slowly that other people could have noticed. Or the opposite - being so fidgety or restless that you have been moving around a lot more than usual: not at all 9. Thoughts that you would be better off or of hurting yourself in some way: not at all Total score: 0 Depression Screening Interpretation: Negative Depression Screening Done: Yes 90469 - PHQ-9 Billing: Yes Source: Developed by Drs. Michael Wilkinson, Leatha Faustin, Dusty Chaudhry and colleagues, with an educational debbie from [employer]. Thrive Questionnaire Date Thrive assessed: 06/24/24 I am a: Patient What is your living situation today?: I have a steady place to live Within the past 12 months, did the food you bought not last and you didn't have the money to get more?: Never true Within the past 12 months, did you worry whether your food would run out before you got money to buy more?: Never true Do you have trouble paying for medicines?: No Do you have trouble getting transportation to medical appointments?: No Do you have trouble paying your heating and electricity bill?: No Do you have trouble taking care of your child, family member or friend?: No Do you have trouble with day-to-day activities such as bathing, preparing meals, shopping, managing finances, etc.?: No Are you currently unemployed and looking for a job?: Yes Are you interested in more education?: No Please select the resources that you would like help with: None Currently or been in a relationship where the following occur: No concerns reported THRIVE Score: 0 AUDIT C Alcohol Use Questionnaire (AUDIT-C) 1. How often do you have a drink containing alcohol?: 2-3 times a week 2. How many drinks containing alcohol do you have on a typical day when you are drinking?: 1 or 2 3. How often do you have six or more drinks on one occasion?: Never Total Score: 3 STEVENSON-7 AMB Questionnaire STEVENSON-7 Date STEVENSON - 7 assessed: 04/29/25 Feeling nervous, anxious, or on edge: 0 = Not at all Not being able to stop or control worryin = Not at all Worrying too much about different things: 0 = Not at all Trouble relaxin = Not at all Being so restless that it is hard to sit still: 0 = Not at all Becoming easily annoyed or irritable: 0 = Not at all Feeling afraid as if something awful might happen: 0 = Not at all Total STEVENSON-7 score (0-4 normal; 5-9 mild; 10-14 moderate; 15-21 severe): 0 Source: Developed by Drs. Michael Wilkinson, Leatha Faustin, Dusty Chaudhry and colleagues, with an educational dbebie from [employer]. Review of Systems Const Reports no additional complaints Eyes Denies change in vision ENT Details: Has full dentures Reports no additional complaints Card Denies chest pain at rest, Denies chest pain with activity, Denies rapid heart rate, Denies irregular heart rhythm, Denies lightheadedness and Denies dyspnea Resp Denies cough and Denies dyspnea GI Denies abdominal pain, Denies hematochezia, Denies change in bowel habits and Denies heartburn Reports no additional complaints Musc Reports no additional complaints Skin/Breast Denies rash Neuro Reports no additional complaints Psych Reports no additional complaints Endo Reports no additional complaints Jimi/Lymph Reports no additional complaints Aller/Immun Reports no additional complaints Physical exam (Primary Care) Vital Signs: Last Vital Signs Temp 98.4 F 04/29/25 13:21 Pulse 90 04/29/25 13:21 Resp 16 04/29/25 13:21 BP 132/54 L 04/29/25 13:21 Pulse Ox 98 04/29/25 13:21 Oxygen Delivery Method Room Air 04/29/25 13:21 BMI result Body Mass Index 33.5 Tobacco/Smoking Status: Tobacco use Status Tobacco use date assessed 04/29/25 04/29/25 13:25 Patient Tobacco Use Status Former Tobacco user 04/29/25 13:25 Tobacco use type Cigarette 04/29/25 13:25 e-Cigarette/Vaping Use Never Used 04/29/25 13:25 PHQ-9: PHQ-9 Score PHQ-9: Total score 0 04/29/25 13:43 Depression Screening Interpretation: Negative Thrive Assessment: Date of Thrive Assessment Date Thrive assessed 06/24/24 04/29/25 13:25 Currently or been in a relationship where the following occur: No concerns reported Const General: no acute distress, alert and awake Nutritional Appearance: obese Orientation/consciousness: patient oriented x3 HENMT Face and sinus: Yes face symmetric Mouth: moist mucous membranes Eyes General: appearance normal, both eyes and all related structures Neck Neck: Yes full ROM, Yes no lymphadenopathy and Yes supple Resp Effort & Inspection: normal respiratory effort and able to speak in complete sentences Auscultation: clear to auscultation bilaterally Cardio Rate: regular rate Rhythm: regular rhythm Heart sounds: S1 normal heart sound present and S2 normal heart sound present GI Inspection: Yes normal to inspection Palpation (GI): Soft to palpation, nontender, no guarding and no masses Auscultation: normal bowel sounds General: Yes no CVA tenderness Male General Exam: Yes normal external exam Back/Spine/Pelvis Back: no CVA tenderness Skin General skin exam: no rashes or lesions noted Neuro General: patient oriented x3, gait normal, tone normal, moves all extremities, Normal light touch and pain sensation and no focal motor deficits Gait exam (Neuro): Normal gait present Extrem General: Yes full ROM, Yes no joint enlargement, Yes no clubbing, cyanosis or edema and Yes normal gait Psych Appearance: grossly normal Mental Status: mental status grossly normal Speech and movement: Normal speech and movement present Affect: normal affect Results Reviewed Results Reviewed: Name: Osorio Boykin Age/Sex: 79/M : 1945 Unit#: [id number] Attend Dr: Mayra Monterroso MD Re04/10/25 Status: DEP [facility] Disch: SPEC : [id number] KAROL: 04/10/25 STATUS: COMP REQ : [id number] RECD: 04/10/[address]: Mayra Monterroso MD COMP: 04/10/25 ENTERED: 04/10/[address] [facility] DR: ORDERED: CMP Fast, Uric, Lipid Panel Test Result Flag Reference Sodium 135 135-145 mmol/L Potassium 4.0 3.3-5.1 mmol/L CL 103 96-108 mmol/L CO2 26 22-29 mmol/L Gap 10 L 12-20 BUN 14 9-16 mg/dL Creat 1.07 0.5-1.4 mg/dL eGFR > 60 Chronic Kidney Disease: Estimated GFR < 60 mL/min/1.73m2 Severe Kidney Disease: Estimated GFR < 15 mL/min/1.73m2 FBS 131 H 60-99 mg/dL A fasting glucose of 126 mg/dl or greater on more than one occasion is considered diagnostic of diabetes. Uric Acid 5.3 3.4-7.0 mg/dL CA 9.2 8.4-10.2 mg/dL Total Bili 0.8 0.0-1.0 mg/dL AST (GOT) 42 H 5-37 U/L ALT (GPT) 40 0-40 U/L Protein, Total 7.8 6.5-8.0 g/dL Alb 4.4 3.5-5.0 g/dL Triglyceride 163 H <150 mg/dL Desirable Triglyceride: less than 150 mg/dL Borderline High Triglyceride 150-199 mg/dL High Triglyceride: 200-499 mg/dL Very High Triglyceride: greater than or equal to 5OO mg/dL Cholesterol 161 <200 mg/dL Desirable Cholesterol: less than 200 mg/dL Borderline High Cholesterol: 200-239 mg/dL High Cholesterol: greater than 239 mg/dL LDL Calculated 76 <100 mg/dL Desirable LDL: less than 100 mg/dL Near Optimal/Above Optimal LDL: 110-129 mg/dL Borderline High LDL: 130-159 mg/dL High LDL: 160-189 mg/dL Very High LDL: greater than or equal to 190 mg/dL HDL 53 >40 mg/dL Desirable HDL: greater than 40 mg/dL Note: This HDL assay may give artificially low results in patients with liver disease. Alk Phos 56 39-117 U/L Laboratory Tests 04/10/25 10:16 Estimat Average Glucose 123 Hemoglobin A1c % 5.9 Coding Level of Care Code Est Pt Prev Care >65y(95879) Diagnoses Annual visit for general adult medical examination with abnormal findings Z00. 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 Continue regular eye exam every 2 years Take adequate calcium in diet and vitamin-D 3 at 2000 IU per cap once a day, in addition to weight-bearing exercises to help maintain good muscle tone and weight control. Instructed to do self testicular exam check for any mass. Up-to-date with his colon cancer screening and vaccinations (2) Evaluation of hearing impairment: Code(s): Z01.10 - Encounter for examination of ears and hearing without abnormal findings Category: Medical Plan: Referred to speech and hearing in [facility] (3) HTN (hypertension): Code(s): I10 - Essential (primary) hypertension Category: Medical Qualifiers: Hypertension type: essential hypertension Qualified Code(s): I10 - Essential (primary) hypertension Plan: The patient's blood pressure of 132 is noted to be higher than his previous measurement of 116. Management will focus on lifestyle changes, specifically weight loss and exercise, with no current changes to medication. (4) Mixed dyslipidemia: Code(s): E78.2 - Mixed hyperlipidemia Category: Medical Plan: recent lab results show improvement in triglycerides, likely due to fish oil supplementation, although they remain above the target of 150. Total and LDL cholesterol are within normal limits. The plan is to continue atorvastatin and Lovaza (5) Impaired fasting glucose: Code(s): R73.01 - Impaired fasting glucose Category: Medical Plan: The patient's blood pressure of 132 is noted to be higher than his previous measurement of 116. Management will focus on lifestyle changes, specifically weight loss and exercise, with no current changes to medication. 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
--- OUTSIDE RECORDS SUMMARY | 2025-04-29 19:56 | XMS_ITS | Patient Health Record ---
Author Organization [facility] Address [address] [place] [address] Care Team Providers Care Manufacturing Maintenance Manager Name Role Phone Mayra Monterroso MD Primary Care Provider Lenard Peerz Jr Allergies No Known Allergies Reason For Referral [...] Status Risk Notes Problem Colon cancer screening (772102003) Colon cancer screening (Z12.11) Active confirmed Problem Ochoa's esophagus ([id number]) 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) Active confirmed Problem Esophageal stricture (20080836) Esophageal stricture (K22.2) Active confirmed Plan Of Treatment No Information Insurance Providers Payer Name Payer Address Payer Phone Subscriber Number Group Number Insured Name Patient Relationship to Insured Coverage Start Date Coverage End Date MEDICARE OF [place] [address] [place] [address] [phone] [id number] [place] Self - patient is the insured [facility] [address] [place] [address] [phone] [id number] [place] Self - patient is the insured Medical (General) History Medical History History ICD Code Gastroesophageal reflux disease Hypertension Hyperlipidemia Doubt Hiatal hernia Dysphagia with esophageal st ricture, EGD 02/12/24, Ochoa's esophagus, biopsies pending Colonoscopy 06/06, diverticulosis, ten-ye ar followup, optional based on age. Surgical History Surgery Date(Month/Year)
--- OUTSIDE RECORDS SUMMARY | 2025-04-29 19:56 | XMS_ITS | Clinical Summary ---
Author Organization [facility] Address [address] [place] [id number] Phone Care Team Providers Care Distribution Sales Representative Name Role Phone Pcp, Not Required Primary [...] Medical Devices Not on file Insurance [facility] [place] [address] [employer] [place] [employer] [place] [employer] [place] [employer] [place] [employer] SU[employer] [employer] [place] [employer] [place] [employer] [place] [employer] [place] Member [facility]scriber [facility] Name:Osorio Boykin Relation to Subscriber:Self Name:Osorio Boykin Payer ID:Not on file Type:Indemnity Address: ONE [address] [address] [employer] [place] [employer] SU[employer] Member Subscriber Plan / Payer ([facility] Name:Osorio Boykin Relation to Subscriber:Self Name:Osorio Boykin Payer ID:Not on file Type:Indemnity Address: ONE [address] [address] [employer] [place] [employer] SU[employer] Member Subscriber Plan / Payer [facility] Name:Osorio Boykin Relation to Subscriber:Self Name:Osorio Boykin Payer ID:Not on file Type:Indemnity Address: ONE [facility] [place] [address] [employer] [place] [employer] SU[employer]MENT [employer] [place] [employer] [place] Care Teams Distribution Sales Representative Relationship Specialty Start Date End Date Pcp, Not Required PCP - General 11/20/21 Additional Source Comments The information contained in this document represents components of the legal health record. It is not the complete legal health record.[facility]
== END 2025-04-29 13:58 | disposition home or self-care (01) ==
LOC: HO.HMCC 12:56
PROVIDERS: PCP Internal Medicine; Visit Provider Internal Medicine
DX: Z00.01 Encounter for general adult medical examination with abnormal findings (principal); I10 Essential (primary) hypertension; E78.2 Mixed hyperlipidemia; H93.13 Tinnitus, bilateral; R73.01 Impaired fasting glucose; D75.89 Other specified diseases of blood and blood-forming organs; E79.0 Hyperuricemia without signs of inflammatory arthritis and tophaceous disease; L40.9 Psoriasis, unspecified

== ENCOUNTER → 2025-04-29 12:55 | Outpatient (BNVA) | payer MEDICARE, OTHER, SELFPAY | PROVIDERS: PCP Internal Medicine; Visit Provider Internal Medicine | DX: Z00.01 Encounter for general adult medical examination with abnormal findings (principal); Z01.10 Encounter for examination of ears and hearing without abnormal findings; I10 Essential (primary) hypertension; E78.2 Mixed hyperlipidemia; R73.01 Impaired fasting glucose; D75.89 Other specified diseases of blood and blood-forming organs; E79.0 Hyperuricemia without signs of inflammatory arthritis and tophaceous disease; L40.9 Psoriasis, unspecified; Z13.39 Encounter for screening examination for other mental health and behavioral disorders; Z13.31 Encounter for screening for depression | CPT/HCPCS: 96127; 99397 ==